=== PATIENT | female | born 1960 | race Caucasian/White ===

== ENCOUNTER → 2024-08-08 | Outpatient (CLI) | payer BC, SELFPAY ==
[2024-08-08 07:38] LABS: Misc Send Out* See Sep Rpt
--- NOTE | 2024-08-08 08:15 | XR_ITS ---
Examination: Screening digital mammography, unilateral right Computer aided detection 3-D breast Tomosynthesis, unilateral Date and time of exam: August 08, 2024 1941 hours INDICATIONS: Right breast itching one year, personal history left breast cancer left mastectomy December 2023 Indication: Screening Technique: Nonmagnified MLO, CC views of the right breast to been obtained, reconstructed from 3-D Tomosynthesis images. R2 computer aided detection program utilized for evaluation of suspicious masses and/or abnormal calcifications. 3-D Tomosynthesis images obtained. Findings: Scattered areas of fibroglandular density. Right nipple appears inverted 10 mm focal asymmetry outer right breast CC view 4.8 cm from the nipple Impression: BI-RADS Category 0: Incomplete: Need additional imaging evaluation 10 mm focal asymmetry outer right breast CC view, 4.8 cm from the nipple, recommend follow-up spot tomographic views upper outer quadrant right breast right breast sonography to complete the workup
[2024-08-08 09:01] LABS: Free T4 (Free Thyroxine) 1.06 ng/dL (0.89-1.76); Thyroid Stimulating Hormone 3.25 uIU/mL (0.55-4.78)
[2024-08-15 06:25] LABS: T3,Total* 83 ng/dL (76-181); TSI, Thyroid Stimulating Ig* <89 % baseline (<140); Thyroid Peroxidase Antibodies* 21 IU/mL (<9)
== END | disposition home or self-care (01) ==
LOC: COPL 07:21
PROVIDERS: Internal Medicine Hematology & Oncology; PCP Internal Medicine; Referring Provider Internal Medicine Endocrinology, Diabetes & Metabolism; Visit Provider Radiology Diagnostic Radiology
DX: N64.89 Other specified disorders of breast (principal); C50.912 Malignant neoplasm of unspecified site of left female breast; E06.3 Autoimmune thyroiditis; E04.9 Nontoxic goiter, unspecified
CPT/HCPCS: 36415; 77063; 77067; 83519; 84439; 84443; 84445; 84480; 86376

== ENCOUNTER 2024-08-15 10:11 | Outpatient (RCR) | payer BC, SELFPAY ==
--- NOTE | 2024-08-15 11:53 | CTCFLWUP_ITS ---
Patient: XIMENA JIANG : 1960 Page 2 of 3 FOLLOW UP NOTE DATE OF SERVICE: 08/15/2024 NAME: XIMENA JIANG ACCOUNT: [id number] : 1960 AGE: 63 INTERVAL HISTORY: Patient is complaining of left chest pain and pain radiate to the right side. Patient feels more alfonso n after working. Patient says that her chest pain comes and goes and have no aggravating or relieving factors. Someti mes she feels that it gets worse after she has worked out. ONCOLOGY HISTORY: DIAGNOSIS: Left breast cancer s/p mastectomy DATE OF DIAGNOSIS: 11/11/2023 STAGE/TNM: [id number] TREATMENT HISTORY: Care?Plan Start?Date Cycle Day Intent HISTORY OF PRESENT ILLNESS: Ximena Jiang is a 63-year-old ENG speaking female with [id number] history has the follo wing oncology history. 04/08/2022: CT scan of the chest without IV contrast was done as a screening test for history of smoki ng 04/15/2022: CT scan of the abdomen and pelvis with IV contrast 06/06/2022: Endocervix as well as endometrial biopsy 08/06/2023: Bilateral screening mammograms 09/10/2023: Left breast ultrasound? 11/11/2023: Ultrasound-guided percutaneous left breast 1:00 nodule biopsy? 12/14/2023: CT scan of the chest without IV contrast was done which was compared to a previous CT scan done on April 08, 2022 11/24/2023: CT scan of the abdomen and pelvis with IV contrast 01/01/2024: Left breast total mastectomy and sentinel lymph node biopsy? Prosigna (R) breast cancer gene signature assay test 01/26/2024: BRCA 1 and 2 test? 02/26/2024: Bone density test done 04/28/2024: PET/CT scan? OTHER MEDICAL HISTORY/CONDITIONS: Left breast cancer - dx 11/11/23 Rheumatoid arthritis Hypothyroid T and A - as child x 1 and tubal ligation 1993 ?Clone Other Med Hx? FAMILY HISTORY: Father:?Prostate?-?dx?80's Mother:?unknown?-?dx?40 ?Clone Family Hx? 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 Tobacco?Pack?per?Day:?1 Tobacco?Use?Years:?30 Tobacco?Use:?1/2?PPD?now ETOH?Use:?Socailly Drug?Note:?Denies Social?History?Note:?Lives?with? ?Clone Social Hx? TOE FORMER STITCHDOWNS HISTORY: Menarche?-?Age:?9 Menopause:?2006 :?7 Live?Births:?6 Age?1st?:?18 Gynecological?Note:?1? ?Clone TOE FORMER STITCHDOWNS Hx? MEDICATIONS: 1. anastrozole - 1 mg 1 tab 1 tab po q daily 2. BenadryL - 1 % 1 As needed 3. Citracal + D Slow Release - 600 mg-12.5 mcg (500 unit) 1 tab one tab po twice a day 4. diazePAM - 5 mg 1 tab As directed 5. levothyroxine - 88 mcg 1 tab Daily 6. ZyrTEC - 10 mg 1 tab Daily?Palabra Meds? Medications Last Reconciled by Vivian Dukes MA on 08/15/2024 ALLERGIES: meloxicam; codeine sulfate; codeine sulfate REVIEW OF SYSTEMS: A complete 14-point review of systems was performed and is negative except as noted in interval histo ry. PHYSICAL EXAMINATION: VITAL SIGNS: Temperature?98.4, B/P?148/91, Oxygen?Saturation?98% Weight?183?lbs PAIN: 4 - Moderate pain ECOG Performance Status: 1 - Symptomatic; ambulatory; restricted in strenuous activity GENERAL APPEARANCE: Appears well, in no apparent distress, appropriately interactive. HEENT: Normocephalic, no temporal wasting, normal conjunctiva, no scleral icterus, normal hearing, li ps without lesions, neck normal range of motion. CARDIOVASCULAR: Not assessed. PULMONARY: Normal respiratory effort, no respiratory distress or use of accessory muscles, speaking i n full sentences, no tachypnea. EXTREMITIES: No pedal edema or cyanosis. SKIN: Normal skin appearance. NEUROLOGIC: Alert and oriented x4. PSHYCHIATRIC: Appropriate affect, mood normal, behavior normal, intact thought and speech. Metastatic breast mastectomy site clean. Patient has lymphedema on the left arm. No other palpable masses in either breast or chest LABORATORY DATA: I have personally reviewed and interpreted each of the patient?s relevant lab tests, abnormal finding s are below: Date 04/04/24 ??WHITE?BLOOD?COUNT?(Thou/mm3) 10.0 ??RED?BLOOD?COUNT?(Miln/mm3) 5.17 ??HEMOGLOBIN?(gm/dl) 15.8 ??HEMATOCRIT?(%) 46.8?H ??PLATELET?COUNT?(Thou/mm3) 388 ??NEUTROPHILS?%,?AUTO?(%) 52 ??LYMPH?%,?AUTO?(%) 36 ??NEUTROPHILS,?AUTO?(Thou/mm3) 5.2 ASSESSMENT/PLAN: 1. Stage Ia (pT1c, N0, M0) low-grade, ER positive, NH positive, HER2/tammy negative multifocal invasive ductal carcinoma of the left breast. Prosigna (R) breast cancer gene signature assay score 57 (intermediate risk) Bone density test (02/26/2024) showed normal mineralization. BRCA 1 and 2 negative. S/p left total mastectomy with sentinel lymph node biopsy (01/01/2024). Patient have lymphedema assoc iated 2. Multiple small pulmonary nodules. [id number] smoking history. Stopped smoking about a month Nodules have been stable and neck scan will be in January 2025 3. History of endometrial thickening-follow with the primary care and fish smoker 4. History of rheumatoid arthritis follow with the primary care 5. History of hypothyroidism on levothyroxine follow-up with the PCP 6. History of gastric ulcers. Patient was seen by Dr. Villafuerte in the past 7. Left-sided chest pain likely from lymphedema. Patient will be sent to lymphedema clinic for refe rral. Also ordered lymphedema sleeve and breast prosthesis with the bras. I will also send patient for cardiac evaluation to make sure patient do not have a silent [place]. Echocardiogram and EKG ordered and referral placed to cardiology for reviewing and further action if needed. Patient advised to go to the emergency room so as to rule out cardiac chest pain but patient wants to follow-up with them o utpatient cop examiner. CBC CMP ORDERS: Echocardiogram CBC and CMP today or tomorrow EKG and cardiac referral RETURN TO CLINIC: 2 months to review all the above BILLING AND COMPLIANCE: I reviewed external records from providers outside my specialty as summarized above. I spent a total of 50 minutes on this patient?s care on the day of their visit excluding time spent related to any bi lled procedures. This time includes time spent with the patient as well as time spent documenting in the medical record, reviewing patients records and tests, obtaining history, placing orders, communi cating with other healthcare professionals, counseling the patient, family or caregiver, and/or care coordination for the diagnoses above. Electronically Signed by: Jose De Jesus Sanchez MD T: 11:51 AM CC: Courtney?Lee,MARINE PCP: Courtney Howard Referring: Courtney Howard This document was completed utilizing speech recognition software. Grammatical errors, random word in sertions, pronoun errors, and incomplete sentences are an occasional consequence of this system due t o software limitations, ambient noise, and hardware issues. Any formal questions or concerns about th e content, text or information contained within the body of this dictation should be directly address ed to the provider for clarification.
== END 2024-08-16 23:59 | disposition home or self-care (01) ==
LOC: SCTC 10:11
PROVIDERS: PCP Internal Medicine; Referring Provider Internal Medicine; Visit Provider Internal Medicine Hematology & Oncology
DX: C50.412 Malignant neoplasm of upper-outer quadrant of left female breast (principal); Z17.0 Estrogen receptor positive status [ER+]; Z17.21 Progesterone receptor positive status; Z17.32 Human epidermal growth factor receptor 2 negative status; Z90.12 Acquired absence of left breast and nipple; R91.8 Other nonspecific abnormal finding of lung field; Z87.891 Personal history of nicotine dependence; E03.9 Hypothyroidism, unspecified; I89.0 Lymphedema, not elsewhere classified
CPT/HCPCS: 99212; G0463

== ENCOUNTER → 2024-08-30 | Outpatient (CLI) | payer BC, SELFPAY ==
--- NOTE | 2024-08-30 15:30 | XR_ITS ---
Examination: Breast ultrasound, unilateral, right complete Date and time of exam: August 30, 2024 1547 hours INDICATIONS: Right breast itching one year with increased nipple inversion over the last year, personal history left breast cancer mastectomy Technique: Real-time bhatia scale ultrasonographic imaging performed right breast including all 4 quadrants as well as nipple retroareolar and axillary region. Findings: No cystic or solid mass IMPRESSION: BI-RADS Category 1: Negative study
[2024-08-30 16:51] LABS: Albumin, Serum 5.3 gm/dL (3.4-4.8); Anion Gap 12 (7-16); BUN/Creatinine Ratio 16 Ratio (12-20); Blood Urea Nitrogen 14 mg/dL (9-23); Calcium 10.3 mg/dL (8.3-10.6); Calcium (Corrected) 10.3 mg/dL (8.5-10.1); Carbon Dioxide 23.8 mMol/L (20.0-31.0); Chloride 103 mMol/L (98-107); Creatinine (Component) 0.9 mg/dL (0.6-1.3); Glucose 99 mg/dL (74-106); Osmolality,Calculated 278 (275-295); Phosphorous 4.5 mg/dL (2.4-5.1); Potassium 4.1 mMol/L (3.4-5.1); Sodium 139 mMol/L (136-145); eGFR > 60 See Note
== END | disposition home or self-care (01) ==
LOC: CDIM 15:35 → COPL 16:00
PROVIDERS: PCP Internal Medicine; Referring Provider Internal Medicine Hematology & Oncology; Visit Provider Internal Medicine Hematology & Oncology
DX: C50.912 Malignant neoplasm of unspecified site of left female breast (principal); G89.28 Other chronic postprocedural pain; Z79.899 Other long term (current) drug therapy
CPT/HCPCS: 36415; 76641; 80069

== ENCOUNTER → 2024-09-07 | Outpatient (CLI) | payer BC, SELFPAY ==
--- NOTE | 2024-09-07 12:00 | XR_ITS ---
Examination: MRI chest , with intravenous contrast. Exam date and time: September 07, 2024 1242 hours INDICATIONS: Chest pain below the breast area and in the left axilla 4 months, personal history left breast cancer mastectomy December 2023 Technique: Multiple axial, sagittal and coronal images of the chest have been obtained with the Siemens high-resolution 1.5 Katie MRI scanner. Axial, sagittal and coronal images are obtained post intravenous injection 15 cc gadolinium. Findings: Left mastectomy No enhancing breast or chest wall mass No pathologic axillary lymphadenopathy depicted No paratracheal tracheobronchial or bronchopulmonary adenopathy Pulmonary mass lesions are not identified No enhancing liver or splenic lesions liver incompletely visualized IMPRESSION: Status post left mastectomy No enhancing breast or chest wall mass No pathologic lymphadenopathy Given the patient's presentation, consider MRI bilateral breasts follow-up pre and postcontrast
== END | disposition home or self-care (01) ==
LOC: SMRI 09-08 08:22
PROVIDERS: PCP Internal Medicine; Referring Provider Internal Medicine; Visit Provider Internal Medicine
DX: G89.28 Other chronic postprocedural pain (principal)
CPT/HCPCS: 71551; A9579

== ENCOUNTER → 2024-09-08 | Outpatient (CLI) | payer BC, SELFPAY ==
[2024-09-08 08:41] LABS: Basophils # (Auto) 0.1 Thou/mm3 (0.0-0.2); Basophils % (Auto) 1 % (0-2.5); Eosinophils # (Auto) 0.2 Thou/mm3 (0.0-0.5); Eosinophils % (Auto) 3 % (0-10); Hematocrit 46.6 % (36.0-46.0); Hemoglobin 15.8 g/dL (12.0-16.0); Immature Granulocytes % (Auto) 0 % (0-0); Immature Granulocytes Auto 0.02 Thou/mm3 (0.00-0.00); Lymphocytes # (Auto) 3.2 Thou/mm3 (1.0-4.8); Lymphocytes % (Auto) 40 % (10-50); Mean Corpuscular HGB Conc 33.9 g/dl (31.0-37.0); Mean Corpuscular Hemoglobin 30.3 pg (25.0-35.0); Mean Corpuscular Volume 89 fL (80-100); Monocytes # (Auto) 0.6 Thou/mm3 (0.0-0.8); Monocytes % (Auto) 8 % (0-12); Neutrophils # (Auto) 3.9 Thou/mm3 (1.8-7.7); Neutrophils % (Auto) 49 % (37-80); Nucleated Red Blood Cell % 0 /100 WBC (0); Platelet Count 355 Thou/mm3 (140-440); RDW Standard Deviation 43.3 fL (36.4-46.3); Red Blood Count 5.21 Miln/mm3 (4.00-5.20)
[2024-09-08 09:16] LABS: Alanine Aminotransferase 29 U/L (10-49); Albumin, Serum 5.1 gm/dL (3.4-4.8); Albumin/Globulin Ratio 1.9 (1.2-2.2); Alkaline Phosphatase 96 U/L (46-116); Anion Gap 8 (7-16); Aspartate Amino Transferase 15 U/L (0-34); BUN/Creatinine Ratio 23 Ratio (12-20); Bilirubin,Total 0.2 mg/dL (0.3-1.2); Blood Urea Nitrogen 18 mg/dL (9-23); Calcium 10.2 mg/dL (8.3-10.6); Calcium (Corrected) 10.2 mg/dL (8.5-10.1); Carbon Dioxide 27.5 mMol/L (20.0-31.0); Chloride 104 mMol/L (98-107); Creatinine (Component) 0.8 mg/dL (0.6-1.3); Free T4 (Free Thyroxine) 1.38 ng/dL (0.89-1.76); Globulin 2.7 gm/dL (2.3-3.5); Glucose 121 mg/dL (74-106); Osmolality,Calculated 280 (275-295); Potassium 4.7 mMol/L (3.4-5.1); Sodium 139 mMol/L (136-145); Thyroid Stimulating Hormone 3.27 uIU/mL (0.55-4.78); Total Protein 7.8 gm/dL (5.7-8.2); eGFR > 60 See Note
== END | disposition home or self-care (01) ==
LOC: SCTO 07:10
PROVIDERS: PCP Internal Medicine; Referring Provider Internal Medicine Hematology & Oncology; Visit Provider Internal Medicine Hematology & Oncology
DX: C50.912 Malignant neoplasm of unspecified site of left female breast (principal)
CPT/HCPCS: 36415; 80053; 84439; 84443; 85025

== ENCOUNTER → 2024-09-13 | Outpatient (CLI) | payer BC, SELFPAY ==
--- NOTE | 2024-09-13 07:52 | EKG_ITS ---
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
== END | disposition home or self-care (01) ==
PROVIDERS: PCP Internal Medicine; Referring Provider Internal Medicine Hematology & Oncology; Visit Provider Internal Medicine Hematology & Oncology
DX: C50.912 Malignant neoplasm of unspecified site of left female breast (principal)
CPT/HCPCS: 93005

== ENCOUNTER → 2024-10-11 | Outpatient (CLI) | payer BC, SELFPAY ==
[2024-10-11 08:43] LABS: Anion Gap 9 (7-16); BUN/Creatinine Ratio 20 Ratio (12-20); Blood Urea Nitrogen 16 mg/dL (9-23); Carbon Dioxide 26.9 mMol/L (20.0-31.0); Chloride 104 mMol/L (98-107); Creatinine (Component) 0.8 mg/dL (0.6-1.3); Glucose 126 mg/dL (74-106); Osmolality,Calculated 282 (275-295); Potassium 4.6 mMol/L (3.4-5.1); Sodium 140 mMol/L (136-145); eGFR > 60 See Note
== END | disposition home or self-care (01) ==
LOC: COPL 07:29
PROVIDERS: PCP Internal Medicine; Referring Provider Internal Medicine; Visit Provider Internal Medicine
DX: Z79.899 Other long term (current) drug therapy (principal)
CPT/HCPCS: 36415; 80048

== ENCOUNTER → 2024-11-09 | Outpatient (CLI) | payer BC, SELFPAY ==
--- NOTE | 2024-11-09 | XR_ITS ---
Examination: MRI bilateral breasts without intravenous contrast MRI bilateral breasts with intravenous contrast Exam date and time: November 09, 2024 0740 hours Comparison right breast sonography August 30, 2024, mammography, right August 08, 2024 INDICATIONS: Diagnosis right breast pain, status post left mastectomy for left breast carcinoma December 2023, mammogram August 08, 2024 10 mm focal asymmetry outer right breast CC view, 4.8 cm from the nipple TECHNIQUE AND FINDINGS:: Bilateral breast MRI images pre and post 16 cc gadolinium Left mastectomy with scar formation lateral left chest Scattered areas of fibroglandular density right breast with minimal background breast enhancement Left axillary lymph nodes, the largest 8 mm No dominant breast mass No chest wall mass Postcontrast images demonstrate no focal area of rapid wash-in and washout IMPRESSION: BI-RADS Category 2: Benign findings Given the mammogram report August 08, 2024 indicating 10 mm focal asymmetry outer right breast CC view, 4.8 cm from the nipple, recommend repeat right diagnostic mammogram January 2025
== END | disposition home or self-care (01) ==
LOC: SMRI 06:56
PROVIDERS: PCP Internal Medicine; Referring Provider Internal Medicine; Visit Provider Internal Medicine
DX: N64.89 Other specified disorders of breast (principal)
CPT/HCPCS: 77049; A4699; A9579; C8908

== ENCOUNTER → 2024-11-15 | Outpatient (CLI) | payer BC, SELFPAY ==
[2024-11-15 08:38] LABS: Basophils # (Auto) 0.1 Thou/mm3 (0.0-0.2); Basophils % (Auto) 1 % (0-2.5); Eosinophils # (Auto) 0.3 Thou/mm3 (0.0-0.5); Eosinophils % (Auto) 4 % (0-10); Hematocrit 45.5 % (36.0-46.0); Hemoglobin 15.4 g/dL (12.0-16.0); Immature Granulocytes % (Auto) 0 % (0-0); Immature Granulocytes Auto 0.02 Thou/mm3 (0.00-0.00); Lymphocytes # (Auto) 3.1 Thou/mm3 (1.0-4.8); Lymphocytes % (Auto) 39 % (10-50); Mean Corpuscular HGB Conc 33.8 g/dl (31.0-37.0); Mean Corpuscular Hemoglobin 30.4 pg (25.0-35.0); Mean Corpuscular Volume 90 fL (80-100); Monocytes # (Auto) 0.6 Thou/mm3 (0.0-0.8); Monocytes % (Auto) 8 % (0-12); Neutrophils # (Auto) 3.8 Thou/mm3 (1.8-7.7); Neutrophils % (Auto) 48 % (37-80); Nucleated Red Blood Cell % 0 /100 WBC (0); Platelet Count 376 Thou/mm3 (140-440); RDW Standard Deviation 42.8 fL (36.4-46.3); Red Blood Count 5.07 Miln/mm3 (4.00-5.20); White Blood Count 7.9 Thou/mm3 (3.6-11.0)
[2024-11-15 09:13] LABS: Alanine Aminotransferase 40 U/L (10-49); Albumin, Serum 4.9 gm/dL (3.4-4.8); Albumin/Globulin Ratio 1.9 (1.2-2.2); Alkaline Phosphatase 93 U/L (46-116); Anion Gap 7 (7-16); Aspartate Amino Transferase 31 U/L (0-34); BUN/Creatinine Ratio 16 Ratio (12-20); Bilirubin,Total 0.3 mg/dL (0.3-1.2); Blood Urea Nitrogen 14 mg/dL (9-23); Calcium 10.1 mg/dL (8.3-10.6); Calcium (Corrected) 10.1 mg/dL (8.5-10.1); Chloride 107 mMol/L (98-107); Creatinine (Component) 0.9 mg/dL (0.6-1.3); Globulin 2.6 gm/dL (2.3-3.5); Glucose 120 mg/dL (74-106); Osmolality,Calculated 280 (275-295); Potassium 4.6 mMol/L (3.4-5.1); Sodium 140 mMol/L (136-145); Total Protein 7.5 gm/dL (5.7-8.2); eGFR > 60 See Note
== END | disposition home or self-care (01) ==
PROVIDERS: PCP Internal Medicine; Referring Provider Internal Medicine Hematology & Oncology; Visit Provider Internal Medicine Hematology & Oncology
DX: C50.912 Malignant neoplasm of unspecified site of left female breast (principal)
CPT/HCPCS: 36415; 80053; 85025

== ENCOUNTER 2024-11-23 14:05 | Outpatient (RCR) | payer BC, SELFPAY ==
--- NOTE | 2024-11-24 00:33 | CTCFLWUP_ITS ---
Patient: XIMENA JIANG : 1960 Page 10 of 11 FOLLOW UP NOTE DATE OF SERVICE: 11/23/2024 NAME: XIMENA JIANG ACCOUNT: [id number] : 1960 AGE: 64 INTERVAL HISTORY: Deidre, a patient with a history of breast cancer, Heath's thyroiditis, and hypertension, presents for follow-up of left-sided face pain and routine cancer surveillance. The patient reports improvement in her left-sided face pain, which she initially experienced in July. The pain, which previously worsened after working out, has now reduced to a dull ache without severe episodes. The patient has been attending lymphedema clinic and reports good progress, performing exercises at home and using a prosthesis. She mentions waking up around 3 AM every morning, possibly due to hot flashes. The patient also reports difficulty losing weight despite eating little, which she attributes to her hypothyroidism. Deidre has a 30 pack-year smoking history and undergoes annual CT scans for lung nodule surveillance. She reports stable bilateral nodules with no new pulmonary nodules on her most recent scan. 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 Regarding her breast cancer follow-up, Deidre's last mammogram in July showed a 10 mm focal asymmetry in the right breast, with a negative ultrasound. A subsequent breast MRI suggested a diagnostic mammogram in 6 months. The patient continues to take anastrozole daily as prescribed. Deidre reports adopting a new diet two weeks ago, focusing on fish, gluten- free options, low-carb choices, and plenty of vegetables and fruits. She is adhering to her medication regimen, including calcium and vitamin D supplements, and obtaining vitamin D over the counter. 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 - Hyperthyroidism (initially, prior to hypothyroidism) - Hypertension (chronic) - Left atrial enlargement - Right bundle branch block - Mild right ventricular systolic dysfunction - Lymphedema Surgical History - Thyroid procedure (likely removal of thyroid tissue) Medications and Supplements - Anastrozole - Taken daily until 2030 - Can cause osteoporosis - Calcium - Taken daily - Vitamin D - Taken daily - Obtained over the counter - Centrum Silver multivitamin for women - Taken daily - Contains B12 Social History - Substance Use: 30 pack-year smoking history - Diet: Recently started gluten-free, low-carb diet with lots of vegetables, fruits, and fish (2 weeks ago) - Exercise: Performs exercises at home for lymphedema management Review of Systems General: Positive for difficulty losing weight. HEENT: Positive for left-sided face pain (improved to dull ache). Cardiovascular: Positive for mild right ventricular strain. Respiratory: Positive for throat wheezing. Neurological: Positive for waking up at 3 AM every morning. Endocrine: Positive for hot flashes.ONCOLOGY HISTORY:?[facility] Hx? DIAGNOSIS: Left breast cancer s/p mastectomy DATE OF DIAGNOSIS: 11/11/2023 STAGE/TNM: [id number] TREATMENT HISTORY: Care?Plan Start?Date Cycle Day Intent HISTORY OF PRESENT ILLNESS: Ximena Jiang is a 64-year-old ENG speaking female with [id number] history has the following oncology history. 04/08/2022: CT scan of the chest without IV contrast was done as a screening test for history of smoking 04/15/2022: CT scan of the abdomen and pelvis with IV contrast 06/06/2022: Endocervix as well as endometrial biopsy 08/06/2023: Bilateral screening mammograms 09/10/2023: Left breast ultrasound? 11/11/2023: Ultrasound-guided percutaneous left breast 1:00 nodule biopsy? 12/14/2023: CT scan of the chest without IV contrast was done which was compared to a previous CT scan done on April 08, 2022 11/24/2023: CT scan of the abdomen and pelvis with IV contrast 01/01/2024: Left breast total mastectomy and sentinel lymph node biopsy? Prosigna (R) breast cancer gene signature assay test 01/26/2024: BRCA 1 and 2 test? 02/26/2024: Bone density test done 04/28/2024: PET/CT scan? OTHER MEDICAL HISTORY/CONDITIONS: Left breast cancer - dx 11/11/23 Rheumatoid arthritis Hypothyroid T and A - as child x 1 and tubal ligation 1993 ?Clone Other Med Hx? FAMILY HISTORY: Father:?Prostate?-?dx?80's Mother:?unknown?-?dx?40 ?Clone Family Hx? 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 Tobacco?Pack?per?Day:?1 Tobacco?Use?Years:?30 Tobacco?Use:?1/2?PPD?now ETOH?Use:?Socailly Drug?Note:?Denies Social?History?Note:?Lives?with? ?Clone Social Hx? CARD CHECKER HISTORY: Menarche?-?Age:?9 Menopause:?2006 :?7 Live?Births:?6 Age?1st?:?18 Gynecological?Note:?1? ?Clone CARD CHECKER Hx? MEDICATIONS: 1. anastrozole - 1 mg 1 tab 1 tab po q daily 2. Arimidex - 1 mg 1 tab Daily 3. BenadryL - 1 % 1 As needed 4. Citracal + D Slow Release - 600 mg-12.5 mcg (500 unit) 1 tab one tab po twice a day 5. diazePAM - 5 mg 1 tab As directed 6. levothyroxine - 88 mcg 1 tab Daily 7. ZyrTEC - 10 mg 1 tab Daily?Palabra Meds? Medications Last Reconciled by Vivian Dukes MA on 11/23/2024 ALLERGIES: meloxicam; codeine sulfate; codeine sulfate REVIEW OF SYSTEMS: A complete 14-point review of systems was performed and is negative except as noted in interval history. PHYSICAL EXAMINATION:?[facility] PE? VITAL SIGNS: Temperature?98.7, B/P?129/84, Oxygen?Saturation?97% Weight?180?lbs PAIN: 0 - No pain ECOG Performance Status: 1 - Symptomatic; ambulatory; restricted in strenuous activity GENERAL APPEARANCE: Appears well, in no apparent distress, appropriately interactive. HEENT: Normocephalic, no temporal wasting, normal conjunctiva, no scleral icterus, normal hearing, lips without lesions, neck normal range of motion. CARDIOVASCULAR: Not assessed. PULMONARY: Normal respiratory effort, no respiratory distress or use of accessory muscles, speaking in full sentences, no tachypnea. EXTREMITIES: No pedal edema or cyanosis. SKIN: Normal skin appearance. NEUROLOGIC: Alert and oriented x4. PSHYCHIATRIC: Appropriate affect, mood normal, behavior normal, intact thought and speech. Metastatic breast mastectomy site clean. Patient has lymphedema on the left arm. No other palpable masses in either breast or chest Laboratory, Imaging, and Diagnostic Test Results - Echocardiogram: - Ejection fraction: 60-65% (normal) - Left atrial enlargement - Right bundle branch block - Mild strain on the heart - Reduced right ventricular systolic function - Chest CT scan: - Stable bilateral nodules - No new pulmonary nodules - Mammogram (July): - 10 mm focal asymmetry in the right breast - Breast ultrasound: - Negative - Breast MRI: - Suggested diagnostic mammogram in 6 months - Bone density scan (February 2024): - Normal LABORATORY DATA: I have personally reviewed and interpreted each of the patient?s relevant lab tests, abnormal findings are below: Date 09/08/24 10/11/24 11/15/24 ??WHITE?BLOOD?COUNT?(Thou/mm3) ? ? 7.9 ??RED?BLOOD?COUNT?(Miln/mm3) ? ? 5.07 ??HEMOGLOBIN?(gm/dl) ? ? 15.4 ??HEMATOCRIT?(%) ? ? 45.5 ??PLATELET?COUNT?(Thou/mm3) ? ? 376 ??NEUTROPHILS?%,?AUTO?(%) ? ? 48 ??LYMPH?%,?AUTO?(%) ? ? 39 ??NEUTROPHILS,?AUTO?(Thou/mm3) ? ? 3.8 ??GLUCOSE,RANDOM?(mg/dL) 121?H 126?H 120?H ??BLOOD?UREA?NITROGEN?(mg/dL) 18 16 14 ??CREATININE?(mg/dL) 0.80 0.80 0.90 ??SODIUM?(mmol/L) 139 140 140 ??POTASSIUM?(mmol/L) 4.7 4.6 4.6 ??CHLORIDE?(mmol/L) 104 104 107 ??CrCl?(CandG)?(ml/min) 73.64 73.64 65.46 ??AST/SGOT?(Unit/L) 15 ? 31 ??ALT/SGPT?(Unit/L) 29 ? 40 ??ALKALINE?PHOSPHATASE?(Unit/L) 96 ? 93 ??BILIRUBIN,?TOTAL?(mg/dL) 0.2?L ? 0.3 ??PROTEIN?TOTAL?(gm/dl) 7.8 ? 7.5 ??ALBUMIN,?SERUM?(gm/dl) 5.1?H ? 4.9?H ??GLOBULIN?(gm/dl) 2.7 ? 2.6 ??ALBUMIN/GLOBULIN?RATIO 1.9 ? 1.9 ??CALCIUM,?SERUM?(mg/dL) 10.2 10.0 10.1 ??CALCIUM?SERUM?(CORRECTED)?(mg/dL) 10.2?H ? 10.1 ASSESSMENT/PLAN:?GuilleEdgardomaira Boogie Assessment/Plan? 1. Stage Ia (pT1c, N0, M0) low-grade, ER positive, IN positive, HER2/tammy negative multifocal invasive ductal carcinoma of the left breast. Prosigna (R) breast cancer gene signature assay score 57 (intermediate risk) Bone density test (02/26/2024) showed normal mineralization. BRCA 1 and 2 negative. S/p left total mastectomy with sentinel lymph node biopsy (01/01/2024). Patient have lymphedema associated Deidre, a female patient with a history of breast cancer, Heath's thyroiditis, and hypertension, presents for follow-up of left-sided face pain and management of multiple chronic conditions. Left-sided face pain Assessment: Patient reported left-sided face pain in July, which worsened after working out. Currently, the pain has improved to a dull ache without severe episodes. The etiology of the pain is not clearly established in the transcript. Plan: - Continue monitoring symptoms - Advised to rest more and avoid overexertion Breast cancer (history) Assessment: Patient has a history of breast cancer and is currently on anastrozole therapy. Recent mammogram in July showed a 10 mm focal asymmetry in the right breast, with a negative ultrasound. Breast MRI suggested a follow- up diagnostic mammogram in 6 months. Plan: - Schedule right diagnostic mammogram in 6 months (January) - Continue anastrozole daily until 2030 - Continue calcium and vitamin D supplementation - Recommend Centrum Silver multivitamin for women daily - Monitor for osteoporosis risk due to anastrozole therapy - Next bone density scan due in February 2026 Cardiovascular health Assessment: Recent echocardiogram showed normal heart function with an ejection fraction of 60-65%. Left atrial enlargement and right bundle branch block were noted, likely due to chronic hypertension. Mild strain on the heart and reduced right ventricular systolic function were also observed. Plan: - Continue management of hypertension (specific treatment not mentioned) - Advised to keep room temperature cool at night to manage hot flashes Pulmonary nodules Assessment: Patient has a 30 pack-year smoking history and undergoes annual CT scans. Recent scans show stable bilateral nodules with no new pulmonary nodules identified. Plan: - Schedule another chest CT scan - Follow up in 6 months - Strongly advise smoking cessation Heath's thyroiditis Assessment: Patient has a history of Heath's thyroiditis, which is causing hypothyroidism. She reports difficulty losing weight despite reduced caloric intake, which is consistent with hypothyroidism. 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 Plan: - Continue current thyroid management (specific treatment not mentioned) - Encourage weight maintenance and periodic weight checks - Recommend plant-based, gluten-free, low-carb diet with plenty of vegetables and fruits Lymphedema Assessment: Patient is attending lymphedema clinic and reports positive outcomes. She is performing exercises at home and has obtained a prosthesis. Plan: - Continue with lymphedema clinic - Maintain home exercise regimenORDERS: Order # Description [id number] 3D Mammogram Diagnostic + Right RETURN TO CLINIC: 6 months Instructions Dear Deidre, Thank you for visiting today. Here is a summary of the miller instructions: Medications: - Continue taking anastrozole daily until 2030 - Take calcium and vitamin D supplements daily - Take Centrum Silver multivitamin for women daily Lifestyle Changes: - Try to rest more and avoid overexertion - Keep bedroom temperature lower at night - Take a shower at night to help with sleep - Focus on not gaining more weight - Follow a plant-based diet with lots of vegetables and fruits - Continue eating fish, gluten-free, and low-carb foods Medical Care: - Continue with lymphedema clinic exercises at home - Get a right diagnostic mammogram in 6 months (January) - Get a chest CT scan - Ensure all screenings are up to date, including colonoscopy Follow-up: - Follow-up appointment in 6 months Please reach out if you have any questions or concerns. Best Regards, jose de jesus boogie, Oncology BILLING AND COMPLIANCE: I reviewed external records from providers outside my specialty as summarized above. I spent a total of 50 minutes on this patient?s care on the day of their visit excluding time spent related to any billed procedures. This time includes time spent with the patient as well as time spent documenting in the medical record, reviewing patients records and tests, obtaining history, placing orders, communicating with other healthcare professionals, counseling the patient, family or caregiver, and/or care coordination for the diagnoses above. Electronically Signed by: Jose De Jesus Boogie MD T: 12:31 AM CC: Courtney?Lee,? PCP: Courtney Howard Referring: Courtney Howard This document was completed utilizing speech recognition software. Grammatical errors, random word insertions, pronoun errors, and incomplete sentences are an occasional consequence of this system due to software limitations, ambient noise, and hardware issues. Any formal questions or concerns about the content, text or information contained within the body of this dictation should be directly addressed to the provider for clarification.
== END 2024-12-14 23:59 | disposition home or self-care (01) ==
LOC: SCTC 14:05
PROVIDERS: PCP Internal Medicine; Referring Provider Internal Medicine; Visit Provider Internal Medicine Hematology & Oncology
DX: C50.412 Malignant neoplasm of upper-outer quadrant of left female breast (principal); Z17.0 Estrogen receptor positive status [ER+]; Z17.21 Progesterone receptor positive status; Z17.32 Human epidermal growth factor receptor 2 negative status; Z90.12 Acquired absence of left breast and nipple; E06.3 Autoimmune thyroiditis; I10 Essential (primary) hypertension; R51.9 Headache, unspecified; N64.89 Other specified disorders of breast; R91.8 Other nonspecific abnormal finding of lung field; I89.0 Lymphedema, not elsewhere classified
CPT/HCPCS: 99212; G0463

== ENCOUNTER → 2024-11-24 | Outpatient (CLI) | payer BC, SELFPAY ==
[2024-11-24 08:39] LABS: Glucose Estimated Average 134 mg/dL (80-131); Hemoglobin A1C 6.3 % Hgb (4.8-6.0)
[2024-11-24 08:41] LABS: Basophils # (Auto) 0.1 Thou/mm3 (0.0-0.2); Basophils % (Auto) 1 % (0-2.5); Eosinophils # (Auto) 0.3 Thou/mm3 (0.0-0.5); Eosinophils % (Auto) 5 % (0-10); Hematocrit 43.5 % (36.0-46.0); Hemoglobin 14.9 g/dL (12.0-16.0); Immature Granulocytes % (Auto) 0 % (0-0); Immature Granulocytes Auto 0.01 Thou/mm3 (0.00-0.00); Lymphocytes # (Auto) 2.5 Thou/mm3 (1.0-4.8); Lymphocytes % (Auto) 35 % (10-50); Mean Corpuscular HGB Conc 34.3 g/dl (31.0-37.0); Mean Corpuscular Hemoglobin 30.5 pg (25.0-35.0); Mean Corpuscular Volume 89 fL (80-100); Monocytes # (Auto) 0.6 Thou/mm3 (0.0-0.8); Monocytes % (Auto) 9 % (0-12); Neutrophils # (Auto) 3.4 Thou/mm3 (1.8-7.7); Neutrophils % (Auto) 50 % (37-80); Nucleated Red Blood Cell % 0 /100 WBC (0); Platelet Count 343 Thou/mm3 (140-440); RDW Standard Deviation 43.6 fL (36.4-46.3); Red Blood Count 4.88 Miln/mm3 (4.00-5.20); White Blood Count 6.9 Thou/mm3 (3.6-11.0)
[2024-11-24 08:53] LABS: Alanine Aminotransferase 75 U/L (10-49); Albumin, Serum 4.8 gm/dL (3.4-4.8); Albumin/Globulin Ratio 1.8 (1.2-2.2); Alkaline Phosphatase 89 U/L (46-116); Anion Gap 8 (7-16); Aspartate Amino Transferase 47 U/L (0-34); BUN/Creatinine Ratio 19 Ratio (12-20); Bilirubin,Total 0.3 mg/dL (0.3-1.2); Blood Urea Nitrogen 15 mg/dL (9-23); Calcium 9.7 mg/dL (8.3-10.6); Calcium (Corrected) 9.7 mg/dL (8.5-10.1); Carbon Dioxide 23.7 mMol/L (20.0-31.0); Cardiac Risk Estimate 3.3 RATIO (3.7-5.6); Chloride 109 mMol/L (98-107); Cholesterol 187 mg/dL (132-200); Creatinine (Component) 0.8 mg/dL (0.6-1.3); Globulin 2.7 gm/dL (2.3-3.5); Glucose 127 mg/dL (74-106); HDL Cholesterol 57 mg/dL (40-60); LDL Cholesterol,Calculated 103 mg/dL (0-130); Osmolality,Calculated 284 (275-295); Potassium 4.3 mMol/L (3.4-5.1); Sodium 141 mMol/L (136-145); Thyroid Stimulating Hormone 2.17 uIU/mL (0.55-4.78); Total Protein 7.5 gm/dL (5.7-8.2); Triglycerides 133 mg/dL (30-150); eGFR > 60 See Note
[2024-11-24 09:02] LABS: Syphilis Nonreactive (Nonreactive)
[2024-11-24 09:22] LABS: Hepatitis A Antibody IgM Non Reactive (Non React); Hepatitis B Core Antibody IgM Non Reactive (Non React); Hepatitis B Surface Antigen Non Reactive (Non React); Hepatitis C Antibody Non Reactive (Non React); Vitamin D 25 Hydroxy Total 28.9 ng/mL (7.3-40.2)
[2024-11-28 06:46] LABS: HIV Ag/Ab, 4th Gen NON-REACTIVE
== END | disposition home or self-care (01) ==
LOC: COPL 07:06
PROVIDERS: PCP Internal Medicine; Referring Provider Internal Medicine; Visit Provider Internal Medicine
DX: Z11.3 Encounter for screening for infections with a predominantly sexual mode of transmission (principal); E03.9 Hypothyroidism, unspecified; E06.3 Autoimmune thyroiditis; E56.9 Vitamin deficiency, unspecified; E78.1 Pure hyperglyceridemia; F41.9 Anxiety disorder, unspecified; Z79.899 Other long term (current) drug therapy
CPT/HCPCS: 36415; 80053; 80061; 80074; 82306; 83036; 84443; 85025; 86780; 87389

== ENCOUNTER → 2024-12-28 | Outpatient (CLI) | payer BC, SELFPAY ==
[2024-12-28 07:16] LABS: Misc Send Out* See Sep Rpt
[2024-12-28 08:23] LABS: Basophils # (Auto) 0.1 Thou/mm3 (0.0-0.2); Basophils % (Auto) 1 % (0-2.5); Eosinophils # (Auto) 0.4 Thou/mm3 (0.0-0.5); Eosinophils % (Auto) 5 % (0-10); Hematocrit 45.1 % (36.0-46.0); Hemoglobin 15.6 g/dL (12.0-16.0); Immature Granulocytes % (Auto) 0 % (0-0); Immature Granulocytes Auto 0.01 Thou/mm3 (0.00-0.00); Lymphocytes # (Auto) 3.1 Thou/mm3 (1.0-4.8); Lymphocytes % (Auto) 39 % (10-50); Mean Corpuscular HGB Conc 34.6 g/dl (31.0-37.0); Mean Corpuscular Hemoglobin 31.5 pg (25.0-35.0); Mean Corpuscular Volume 91 fL (80-100); Monocytes # (Auto) 0.7 Thou/mm3 (0.0-0.8); Monocytes % (Auto) 9 % (0-12); Neutrophils # (Auto) 3.6 Thou/mm3 (1.8-7.7); Neutrophils % (Auto) 46 % (37-80); Nucleated Red Blood Cell % 0 /100 WBC (0); Platelet Count 352 Thou/mm3 (140-440); RDW Standard Deviation 43.1 fL (36.4-46.3); Red Blood Count 4.95 Miln/mm3 (4.00-5.20); White Blood Count 7.8 Thou/mm3 (3.6-11.0)
[2024-12-28 08:31] LABS: Alanine Aminotransferase 32 U/L (10-49); Albumin, Serum 4.7 gm/dL (3.4-4.8); Albumin/Globulin Ratio 1.7 (1.2-2.2); Alkaline Phosphatase 97 U/L (46-116); Anion Gap 8 (7-16); Aspartate Amino Transferase 18 U/L (0-34); BUN/Creatinine Ratio 18 Ratio (12-20); Bilirubin,Total 0.3 mg/dL (0.3-1.2); Blood Urea Nitrogen 14 mg/dL (9-23); Calcium 9.3 mg/dL (8.3-10.6); Calcium (Corrected) 9.3 mg/dL (8.5-10.1); Carbon Dioxide 25.6 mMol/L (20.0-31.0); Chloride 107 mMol/L (98-107); Creatinine (Component) 0.8 mg/dL (0.6-1.3); Globulin 2.8 gm/dL (2.3-3.5); Glucose 134 mg/dL (74-106); Osmolality,Calculated 283 (275-295); Potassium 4.6 mMol/L (3.4-5.1); Rubella, IgG Antibody Reactive (Immune); Sodium 141 mMol/L (136-145); Total Protein 7.5 gm/dL (5.7-8.2); eGFR > 60 See Note
[2025-01-02 07:36] LABS: Measles Antibody (IGG), Immun* >300.00 AU/mL; Mumps Virus Ab (IgG) Immune* >300.00 AU/mL
== END | disposition home or self-care (01) ==
LOC: SCTO 06:52
PROVIDERS: Referring Provider Internal Medicine; Visit Provider Internal Medicine Hematology & Oncology
DX: C50.912 Malignant neoplasm of unspecified site of left female breast (principal)
CPT/HCPCS: 36415; 80053; 85025; 86735; 86762; 86765

== ENCOUNTER → 2024-12-30 | Outpatient (CLI) | payer BC, SELFPAY ==
--- NOTE | 2024-12-30 14:00 | ECHO_ITS ---
Transthoracic Echo Report Ht (in): 63 Wt (lb): 180 Exam Location: Echo Lab Status: Preadmit Dry Plasterer Helper: CHAYO Williamson^^^^ Indications: Procedure Performed: BP: / HR: 98 Technical Quality: Fair MEASUREMENTS (Male / Female) Normal Values 2D ECHO LV Diastolic Diameter PLAX 3.8 cm 4.2 - 5.9 / 3.9 - 5.3 cm LV Systolic Diameter PLAX 2.5 cm IVS Diastolic Thickness 1.0 cm 0.6 - 1.0 / 0.6 - 0.9 cm LVPW Diastolic Thickness 0.8 cm 0.6 - 1.0 / 0.6 - 0.9 cm LV Relative Wall Thickness 0.5 LVOT Diameter 1.8 cm Aortic Root Diameter 2.8 cm LA Systolic Diameter LX 2.3 cm 3.0 - 4.0 / 2.7 - 3.8 cm LA Volume Index 13.5 cm?/m? 16 - 28 cm?/m? DOPPLER AV Peak Velocity 115.0 cm/s AV Peak Gradient 5.3 mmHg AV Mean Gradient 3.0 mmHg AV Velocity Time Integral 18.5 cm LVOT Peak Velocity 77.6 cm/s LVOT Peak Gradient 2.4 mmHg LVOT Velocity Time Integral 17.5 cm LVOT Cardiac Index 2254.0 cm?/min?m? AV Area Cont Eq vti 2.4 cm? AV Area Cont Eq pk 1.7 cm? MV Area PHT 2.8 cm? Mitral E Point Velocity 64.6 cm/s Mitral A Point Velocity 83.2 cm/s Mitral E to A Ratio 0.8 LV E' Lateral Velocity 9.6 cm/s Mitral E to LV E' Lateral Ratio 6.7 LV E' Septal Velocity 8.3 cm/s Mitral E to LV E' Septal Ratio 7.8 PV Peak Velocity 118.0 cm/s PV Peak Gradient 5.6 mmHg RVOT Peak Velocity 80.5 cm/s FINDINGS Left Ventricle Normal left ventricular size, wall thickness, systolic function with no obvious regional wall motion abnormalities. There is grade I diastolic dysfunction of the left ventricle (impaired relaxation pattern). The left ventricular ejection fraction is normal, estimated at 55-60%. Right Ventricle The right ventricle is normal in size and systolic function. The estimated right ventricular systolic pressure, 25 mmHg. Left Atrium The left atrium is normal by two-dimensional, color flow and Doppler imaging with no structural abnormalities, no thrombus formation present. Right Atrium The right atrium is normal by two-dimensional imaging, color flow and Doppler imaging with no structural abnormalities, no thrombus formation present. Atrial Septum The interatrial septum appears normal with no evidence of a shunt. Aorta The aorta is normal by two-dimensional, color flow and Doppler interrogation. Mitral Valve Mild mitral annular calcification. Mild mitral regurgitation. Aortic Valve Aortic valve sclerosis. Tricuspid Valve There is mild tricuspid valve regurgitation. Pulmonic Valve Trivial pulmonic valve regurgitation. Vessels The pulmonary artery appears normal. The inferior vena cava pulmonary and hepatic veins appear normal. Pericardium The pericardium is normal by two-dimensional imaging. There is no significant pericardial effusion. CONCLUSIONS Indication: Malignancy. Normal LV size and function. Estimated EF is 55 to 60%. Stage I diastolic dysfunction. Normal RV size and function. Normal RVSP 25 mmHg. Mild aortic valve sclerosis without stenosis. Mild TR and trace MR. No pericardial effusion. Dharmesh Martin (Electronically Signed) Final Date: 30 Dec 2024 17:32
== END | disposition home or self-care (01) ==
LOC: SDIM 13:46
PROVIDERS: PCP Internal Medicine; Referring Provider Internal Medicine Hematology & Oncology; Visit Provider Internal Medicine Hematology & Oncology
DX: I08.3 Combined rheumatic disorders of mitral, aortic and tricuspid valves (principal); C50.912 Malignant neoplasm of unspecified site of left female breast
CPT/HCPCS: 93306

== ENCOUNTER → 2025-01-03 | Outpatient (CLI) | payer BC, SELFPAY ==
--- NOTE | 2025-01-03 09:30 | XR_ITS ---
Examination: CT chest with intravenous contrast CT chest without intravenous contrast 2-D reconstructions Date and time of exam:January 03, [address] chest 05/13/[address] scan 04/28/2024 INDICATIONS: Diagnosis left breast cancer post mastectomy 2022, bilateral pulmonary nodules noted on CT chest study dating to December 14, 2023 CTDI:vol (mGy) 22.3 DLP: (mGycm) 836 Technique: Multiple axial sections of the thorax have been obtained. 3 mm slice thickness, from the hemidiaphragms to above the apices of the lungs. Mediastinal and lung density settings have been obtained. Intravenous contrast administered 60 cc Isovue-370. Noncontrast images have also been obtained. 2-D sagittal coronal images obtained. Low dose protocols were performed. One or more of the following dose reduction techniques were used; automated exposure control, adjustment of the mA and/or KV according to patient size, use of iterative reconstruction technique. Findings: No thoracic aortic aneurysm dilatation Pulmonary artery segments are not enlarged No paratracheal tracheobronchial or bronchopulmonary adenopathy Stable bilateral subcentimeter pulmonary nodules dating to CT chest examination December 14, 2023 No interval pneumonia or pulmonary edema Left mastectomy No breast chest wall masses or axillary lymphadenopathy Fatty infiltration throughout the liver No gallstones No pancreatic mass 1 mm upper pole left renal calculus IMPRESSION: Stable bilateral subcentimeter pulmonary nodules dating to CT chest examination December 14, 2023 No new pulmonary nodules 1 mm upper pole left renal calculus
== END | disposition home or self-care (01) ==
LOC: CCTX 09:24
PROVIDERS: Referring Provider Internal Medicine Hematology & Oncology; Visit Provider Internal Medicine Hematology & Oncology
DX: R91.8 Other nonspecific abnormal finding of lung field (principal); N20.0 Calculus of kidney; C50.912 Malignant neoplasm of unspecified site of left female breast
CPT/HCPCS: 71270; A4649; Q9967

== ENCOUNTER → 2025-02-06 | Outpatient (CLI) | payer BC, SELFPAY ==
[2025-02-06 08:45] LABS: Basophils # (Auto) 0.1 Thou/mm3 (0.0-0.2); Basophils % (Auto) 0 % (0-2.5); Eosinophils # (Auto) 0.1 Thou/mm3 (0.0-0.5); Eosinophils % (Auto) 1 % (0-10); Hematocrit 45.7 % (36.0-46.0); Hemoglobin 15.7 g/dL (12.0-16.0); Immature Granulocytes % (Auto) 0 % (0-0); Immature Granulocytes Auto 0.05 Thou/mm3 (0.00-0.00); Lymphocytes # (Auto) 5.8 Thou/mm3 (1.0-4.8); Lymphocytes % (Auto) 41 % (10-50); Mean Corpuscular HGB Conc 34.4 g/dl (31.0-37.0); Mean Corpuscular Hemoglobin 31.1 pg (25.0-35.0); Mean Corpuscular Volume 91 fL (80-100); Monocytes # (Auto) 1.1 Thou/mm3 (0.0-0.8); Monocytes % (Auto) 7 % (0-12); Neutrophils # (Auto) 7.2 Thou/mm3 (1.8-7.7); Neutrophils % (Auto) 50 % (37-80); Nucleated Red Blood Cell % 0 /100 WBC (0); Platelet Count 383 Thou/mm3 (140-440); RDW Standard Deviation 41.4 fL (36.4-46.3); Red Blood Count 5.05 Miln/mm3 (4.00-5.20); White Blood Count 14.4 Thou/mm3 (3.6-11.0)
[2025-02-06 08:59] LABS: C-Reactive Protein < 0.5 mg/dL (0.0-0.9); Free T4 (Free Thyroxine) 1.27 ng/dL (0.89-1.76); Thyroid Stimulating Hormone 4.27 uIU/mL (0.55-4.78)
[2025-02-09 06:59] LABS: T3,Total* 73 ng/dL (76-181)
== END | disposition home or self-care (01) ==
LOC: COPL 07:29
PROVIDERS: PCP Internal Medicine; Referring Provider Internal Medicine Endocrinology, Diabetes & Metabolism
DX: E06.3 Autoimmune thyroiditis (principal); E04.9 Nontoxic goiter, unspecified; R21 Rash and other nonspecific skin eruption
CPT/HCPCS: 36415; 84439; 84443; 84480; 85025; 86140

== ENCOUNTER → 2025-02-07 | Outpatient (CLI) | payer BC, SELFPAY ==
--- NOTE | 2025-02-07 14:30 | XR_ITS ---
Examination: Abdomen sonogram, complete Date and time of exam: February 07, 2025 1455 hours INDICATIONS: Epigastric pain beginning 10 minutes ago, elevated liver function tests on laboratory examination November 24, 2024. Technique: Multiple real-time grayscale transabdominal sonographic images of the abdomen have been obtained. Findings: Normal gallbladder Normal common bile duct 0.4 cm Pancreatic head 2.9 cm Aorta not enlarged Liver 15.3 cm fatty infiltration Normal hepatopedal portal venous flow Patent IVC Right kidney 10.9 cm cortex 2.6 cm Left kidney 11.0 cm cortex 3.0 cm 9 mm mid pole left renal calculus Mild right moderate left renal parenchymal scar formation Spleen 8.9 cm IMPRESSION: Normal gallbladder Fatty infiltration throughout the liver 9 mm nonobstructing left renal calculus
== END | disposition home or self-care (01) ==
PROVIDERS: PCP Internal Medicine; Referring Provider Internal Medicine; Visit Provider Internal Medicine
DX: K76.0 Fatty (change of) liver, not elsewhere classified (principal); N20.0 Calculus of kidney
CPT/HCPCS: 76700

== ENCOUNTER → 2025-03-30 | Outpatient (CLI) | payer BC, SELFPAY ==
[2025-03-30 09:51] LABS: Basophils # (Auto) 0.1 Thou/mm3 (0.0-0.2); Basophils % (Auto) 1 % (0-2.5); Eosinophils # (Auto) 0.3 Thou/mm3 (0.0-0.5); Eosinophils % (Auto) 4 % (0-10); Hematocrit 46.3 % (36.0-46.0); Hemoglobin 16.0 g/dL (12.0-16.0); Immature Granulocytes Auto 0.02 Thou/mm3 (0.00-0.00); Lymphocytes # (Auto) 2.9 Thou/mm3 (1.0-4.8); Lymphocytes % (Auto) 41 % (10-50); Mean Corpuscular HGB Conc 34.6 g/dl (31.0-37.0); Mean Corpuscular Hemoglobin 31.0 pg (25.0-35.0); Mean Corpuscular Volume 90 fL (80-100); Monocytes # (Auto) 0.6 Thou/mm3 (0.0-0.8); Monocytes % (Auto) 8 % (0-12); Neutrophils # (Auto) 3.4 Thou/mm3 (1.8-7.7); Neutrophils % (Auto) 47 % (37-80); Nucleated Red Blood Cell # 0.00 Thou/mm3 (0.00-0.00); Nucleated Red Blood Cell % 0 /100 WBC (0); Platelet Count 365 Thou/mm3 (140-440); RDW Standard Deviation 41.9 fL (36.4-46.3); Red Blood Count 5.16 Miln/mm3 (4.00-5.20); White Blood Count 7.2 Thou/mm3 (3.6-11.0)
[2025-03-30 10:11] LABS: Alanine Aminotransferase 36 U/L (10-49); Albumin, Serum 5.2 gm/dL (3.4-4.8); Albumin/Globulin Ratio 2.1 (1.2-2.2); Alkaline Phosphatase 109 U/L (46-116); Anion Gap 10 (7-16); Aspartate Amino Transferase 32 U/L (0-34); BUN/Creatinine Ratio 15 Ratio (12-20); Bilirubin,Total 0.3 mg/dL (0.3-1.2); Blood Urea Nitrogen 12 mg/dL (9-23); Calcium 10.9 mg/dL (8.3-10.6); Calcium (Corrected) 10.9 mg/dL (8.5-10.1); Carbon Dioxide 23.5 mMol/L (20.0-31.0); Chloride 107 mMol/L (98-107); Creatinine (Component) 0.8 mg/dL (0.6-1.3); Free T4 (Free Thyroxine) 1.44 ng/dL (0.89-1.76); Globulin 2.5 gm/dL (2.3-3.5); Glucose 113 mg/dL (74-106); Osmolality,Calculated 280 (275-295); Potassium 4.9 mMol/L (3.4-5.1); Sodium 140 mMol/L (136-145); Thyroid Stimulating Hormone 1.82 uIU/mL (0.55-4.78); Total Protein 7.7 gm/dL (5.7-8.2); eGFR > 60 See Note
[2025-03-30 11:10] LABS: C-Reactive Protein < 0.2 mg/dL (0.0-0.9)
[2025-03-30 12:02] LABS: Cocci Serology, IgM Negative (Negative)
[2025-03-31 15:11] LABS: Cocci Serology, IgG Negative (Negative)
[2025-04-05 17:49] LABS: Sjogren's antibody (SS-A) <1.0 NEG AI (<1.0 NEGATIVE); Sm Antibody <1.0 NEG AI (<1.0 NEGATIVE)
[2025-04-06 06:49] LABS: ANA Pattern CYTOPLASMIC; ANA Screen, IFA POSITIVE (NEGATIVE); ANA Titer 1:80 titer; CCP Antibody (IgG)* <16 Units; DNA (ds) Antibody* 4 IU/mL; Immunoglobulin A 131 mg/dL (70-320); Scl-70 Antibody* <1.0 NEG AI (<1.0 NEGATIVE); Sjogren's Antibody (SS-B) <1.0 NEG AI (<1.0 NEGATIVE); Sm/RNP Antibody <1.0 NEG AI (<1.0 NEGATIVE); tTG Ab, IgA <1.0 U/mL
== END | disposition home or self-care (01) ==
LOC: COPL 08:42
PROVIDERS: PCP Internal Medicine; Referring Provider Allergy & Immunology; Visit Provider Allergy & Immunology
DX: R23.4 Changes in skin texture (principal); L25.3 Unspecified contact dermatitis due to other chemical products; L50.0 Allergic urticaria; T78.1XXA Other adverse food reactions, not elsewhere classified, initial encounter
CPT/HCPCS: 36415; 80053; 82784; 84439; 84443; 85025; 86038; 86140; 86200; 86225; 86235; 86331; 86364; 86635

== ENCOUNTER → 2025-05-15 | Outpatient (CLI) | payer BC, SELFPAY ==
[2025-05-15 08:24] LABS: Basophils # (Auto) 0.1 Thou/mm3 (0.0-0.2); Basophils % (Auto) 1 % (0-2.5); Eosinophils # (Auto) 0.4 Thou/mm3 (0.0-0.5); Eosinophils % (Auto) 5 % (0-10); Hematocrit 44.5 % (36.0-46.0); Hemoglobin 15.3 g/dL (12.0-16.0); Immature Granulocytes Auto 0.02 Thou/mm3 (0.00-0.00); Lymphocytes # (Auto) 2.9 Thou/mm3 (1.0-4.8); Lymphocytes % (Auto) 38 % (10-50); Mean Corpuscular HGB Conc 34.4 g/dl (31.0-37.0); Mean Corpuscular Hemoglobin 30.8 pg (25.0-35.0); Mean Corpuscular Volume 90 fL (80-100); Monocytes # (Auto) 0.5 Thou/mm3 (0.0-0.8); Monocytes % (Auto) 6 % (0-12); Neutrophils # (Auto) 3.8 Thou/mm3 (1.8-7.7); Neutrophils % (Auto) 49 % (37-80); Nucleated Red Blood Cell # 0.00 Thou/mm3 (0.00-0.00); Nucleated Red Blood Cell % 0 /100 WBC (0); Platelet Count 362 Thou/mm3 (140-440); RDW Standard Deviation 41.7 fL (36.4-46.3); Red Blood Count 4.97 Miln/mm3 (4.00-5.20); White Blood Count 7.6 Thou/mm3 (3.6-11.0)
[2025-05-15 08:27] LABS: Alanine Aminotransferase 29 U/L (10-49); Albumin, Serum 4.8 gm/dL (3.4-4.8); Albumin/Globulin Ratio 1.7 (1.2-2.2); Alkaline Phosphatase 107 U/L (46-116); Anion Gap 9 (7-16); Aspartate Amino Transferase 19 U/L (0-34); BUN/Creatinine Ratio 16 Ratio (12-20); Bilirubin,Total 0.3 mg/dL (0.3-1.2); Blood Urea Nitrogen 14 mg/dL (9-23); Calcium 10.2 mg/dL (8.3-10.6); Calcium (Corrected) 10.2 mg/dL (8.5-10.1); Carbon Dioxide 23.6 mMol/L (20.0-31.0); Chloride 107 mMol/L (98-107); Creatinine (Component) 0.9 mg/dL (0.6-1.3); Free T4 (Free Thyroxine) 1.28 ng/dL (0.89-1.76); Globulin 2.8 gm/dL (2.3-3.5); Glucose 132 mg/dL (74-106); Osmolality,Calculated 281 (275-295); Potassium 4.3 mMol/L (3.4-5.1); Sodium 140 mMol/L (136-145); Thyroid Stimulating Hormone 2.37 uIU/mL (0.55-4.78); Total Protein 7.6 gm/dL (5.7-8.2); eGFR > 60 See Note
[2025-05-17 15:34] LABS: A. alternata (M6) IgE <0.10 kU/L; A. fumigatus (M3) Class 0; A. fumigatus (M3) IgE <0.10 kU/L; Alder (T2) Class 1; Alder (T2) IgE 0.61 kU/L; Bermuda Grass (G2) Class 2; Bermuda Grass (G2) IgE 1.32 kU/L; Birch (T3) Class 1; Birch (T3) IgE 0.67 kU/L; C. herbarum (M2) Class 0; C. herbarum (M2) IgE <0.10 kU/L; Cat Dander (e1) Class 0; Cat Dander (e1) IgE <0.10 kU/L; Cockroach (I6) IgE 0.52 kU/L; Common Pigweed (W14) IgE 0.81 kU/L; Common Ragweed (W1) Class 2; Common Ragweed (W1) IgE 0.98 kU/L; D. farinae (D2) Class 0/1; D. farinae (D2) IgE 0.31 kU/L; D. pteronyssinus (D1) Class 0/1; D. pteronyssinus (D1) IgE 0.10 kU/L; Dog Dander (E5) IgE <0.10 kU/L; Elm (T8) IgE 0.93 kU/L; Mountain Cedar (T6) Class 2; Mountain Cedar (T6) IgE 0.73 kU/L; Mouse Ur Prot (E72) IgE <0.10 kU/L; Mugwort (W6) Class 1; Mugwort (W6) IgE 0.65 kU/L; Oak White (T7) Class 2; Oak White (T7) IgE 0.92 kU/L; Olive Tree (T9) Class 2; Olive Tree (T9) IgE 0.74 kU/L; P. notatum (M1) Class 0; P. notatum (M1) IgE <0.10 kU/L; Russian Thistle (W11) Class 2; Russian Thistle (W11) IgE 1.15 kU/L; Sycamore (T11) IgE 1.02 kU/L; Timothy Grass (G6) IgE 1.16 kU/L; White Mulberry (T70) IgE 0.58 kU/L
[2025-05-18 06:30] LABS: A. alternata (M6) Class 0; Cockroach (I6) Class 1; Common Pigweed (W14) Class 2; Dog Dander (E5) Class 0; Elm (T8) Class 2; IgE, Serum* 101 kU/L (114 OR LESS); IgE, Total, Serum 102 kU/L (114 OR LESS); Mouse Ur Prot (E72) Class 0; Sycamore (T11) Class 2; T3,Total* 86 ng/dL (76-181); Timothy Grass (G6) Class 2; White Mulberry (T70) Class 1
== END | disposition home or self-care (01) ==
LOC: COPL 07:20
PROVIDERS: PCP Internal Medicine; Referring Provider Internal Medicine Hematology & Oncology; Visit Provider Internal Medicine Endocrinology, Diabetes & Metabolism
DX: L50.0 Allergic urticaria (principal); J30.1 Allergic rhinitis due to pollen; R23.4 Changes in skin texture; E06.3 Autoimmune thyroiditis; E04.9 Nontoxic goiter, unspecified; C50.912 Malignant neoplasm of unspecified site of left female breast
CPT/HCPCS: 36415; 80053; 82785; 84439; 84443; 84480; 85025; 86003

== ENCOUNTER 2025-05-25 12:58 | Outpatient (RCR) | payer BC, SELFPAY ==
--- NOTE | 2025-05-25 14:00 | CTCFLWUP_ITS ---
Patient: XIMENA JIANG : 1960 Page 10 of 14 FOLLOW UP NOTE DATE OF SERVICE: 05/25/2025 NAME: XIMENA JIANG ACCOUNT: [id number] : 1960 AGE: 64 INTERVAL HISTORY: Deidre,is here for follow up. Patient is complaing of body ache . patient have lost 8 pounds of unintentional . A patient with a history of breast cancer, Heath's thyroiditis, and hypertension, presents for follow-up of left-sided face pain and routine cancer surveillance. The patient reports improvement in her left-sided face pain, which she initially experienced in July. The pain, which previously worsened after working out, has now reduced to a dull ache without severe episodes. The patient has been attending lymphedema clinic and reports good progress, performing exercises at home and using a prosthesis. She mentions waking up around 3 AM every morning, possibly due to hot flashes. The patient also reports difficulty losing weight despite eating little, which she attributes to her hypothyroidism. Deidre has a 30 pack-year smoking history and undergoes annual CT scans for lung nodule surveillance. She reports stable bilateral nodules with no new pulmonary nodules on her most recent scan. 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 Regarding her breast cancer follow-up, Deidre's last mammogram in July showed a 10 mm focal asymmetry in the right breast, with a negative ultrasound. A subsequent breast MRI suggested a diagnostic mammogram in 6 months. The patient continues to take anastrozole daily as prescribed. Deidre reports adopting a new diet two weeks ago, focusing on fish, gluten- free options, low-carb choices, and plenty of vegetables and fruits. She is adhering to her medication regimen, including calcium and vitamin D supplements, and obtaining vitamin D over the counter. 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 - Hyperthyroidism (initially, prior to hypothyroidism) - Hypertension (chronic) - Left atrial enlargement - Right bundle branch block - Mild right ventricular systolic dysfunction - Lymphedema Surgical History - Thyroid procedure (likely removal of thyroid tissue) Medications and Supplements - Anastrozole - Taken daily until 2030 - Can cause osteoporosis - Calcium - Taken daily - Vitamin D - Taken daily - Obtained over the counter - Centrum Silver multivitamin for women - Taken daily - Contains B12 Social History - Substance Use: 30 pack-year smoking history - Diet: Recently started gluten-free, low-carb diet with lots of vegetables, fruits, and fish (2 weeks ago) - Exercise: Performs exercises at home for lymphedema management Review of Systems General: Positive for difficulty losing weight. HEENT: Positive for left-sided face pain (improved to dull ache). Cardiovascular: Positive for mild right ventricular strain. Respiratory: Positive for throat wheezing. Neurological: Positive for waking up at 3 AM every morning. Endocrine: Positive for hot flashes. ONCOLOGY HISTORY:?[facility] Hx? ONCOLOGY HISTORY: DIAGNOSIS: Left breast cancer s/p mastectomy DATE OF DIAGNOSIS: 11/11/2023 STAGE/TNM: Stage [id number] Prosigna score 56- intermediate TREATMENT HISTORY: Care?Plan Start?Date Cycle Day Intent HISTORY OF PRESENT ILLNESS: Ximena Jiang is a 64-year-old ENG speaking female with [id number] history has the following oncology history. 04/08/2022: CT scan of the chest without IV contrast was done as a screening test for history of smoking 04/15/2022: CT scan of the abdomen and pelvis with IV contrast 06/06/2022: Endocervix as well as endometrial biopsy 08/06/2023: Bilateral screening mammograms 09/10/2023: Left breast ultrasound? 11/11/2023: Ultrasound-guided percutaneous left breast 1:00 nodule biopsy? 12/14/2023: CT scan of the chest without IV contrast was done which was compared to a previous CT scan done on April 08, 2022 11/24/2023: CT scan of the abdomen and pelvis with IV contrast 01/01/2024: Left breast total mastectomy and sentinel lymph node biopsy? Prosigna (R) breast cancer gene signature assay test 01/26/2024: BRCA 1 and 2 test? 02/26/2024: Bone density test done 04/28/2024: PET/CT scan? OTHER MEDICAL HISTORY/CONDITIONS: Left breast cancer - dx 11/11/23 Rheumatoid arthritis Hypothyroid T and A - as child x 1 and tubal ligation 1993 ?Clone Other Med Hx? FAMILY HISTORY: Father:?Prostate?-?dx?80's Mother:?unknown?-?dx?40 ?Clone Family Hx? 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 Tobacco?Pack?per?Day:?1 Tobacco?Use?Years:?30 Tobacco?Use:?1/2?PPD?now ETOH?Use:?Socailly Drug?Note:?Denies Social?History?Note:?Lives?with? ?Clone Social Hx? SHEEP CLIPPER HISTORY: Menarche?-?Age:?9 Menopause:?2006 :?7 Live?Births:?6 Age?1st?:?18 Gynecological?Note:?1? ?Clone SHEEP CLIPPER Hx? MEDICATIONS: 1. anastrozole - 1 mg 1 tab 1 tab po q daily 2. Arimidex - 1 mg 1 tab Daily 3. BenadryL - 1 % 1 As needed 4. Citracal + D Slow Release - 600 mg-12.5 mcg (500 unit) 1 tab one tab po twice a day 5. diazePAM - 5 mg 1 tab As directed 6. levothyroxine - 88 mcg 1 tab Daily 7. lisinopril - 2.5 mg 1 tab Daily 8. metoprolol succinate - 25 mg 1 tab Daily 9. ZyrTEC - 10 mg 1 tab Daily?[facility]ra Meds? Medications Last Reconciled by Melisa Dumont MD on 05/25/2025 ALLERGIES: meloxicam; codeine sulfate; codeine sulfate REVIEW OF SYSTEMS: A complete 14-point review of systems was performed and is negative except as noted in interval history. PHYSICAL EXAMINATION:?[facility] PE? VITAL SIGNS: Temperature?98.8, B/P?144/89, Oxygen?Saturation?96% Weight?176?lbs PAIN: 0 - No pain ECOG Performance Status: 0 - Asymptomatic and fully active GENERAL APPEARANCE: Appears well, in no apparent distress, appropriately interactive. HEENT: Normocephalic, no temporal wasting, normal conjunctiva, no scleral icterus, normal hearing, lips without lesions, neck normal range of motion. CARDIOVASCULAR: Not assessed. PULMONARY: Normal respiratory effort, no respiratory distress or use of accessory muscles, speaking in full sentences, no tachypnea. EXTREMITIES: No pedal edema or cyanosis. SKIN: Normal skin appearance. NEUROLOGIC: Alert and oriented x4. PSHYCHIATRIC: Appropriate affect, mood normal, behavior normal, intact thought and speech. Metastatic breast mastectomy site clean. Patient has lymphedema on the left arm. No other palpable masses in either breast or chest Laboratory, Imaging, and Diagnostic Test Results - Echocardiogram: - Ejection fraction: 60-65% (normal) - Left atrial enlargement - Right bundle branch block - Mild strain on the heart - Reduced right ventricular systolic function - Chest CT scan: - Stable bilateral nodules - No new pulmonary nodules - Mammogram (July): - 10 mm focal asymmetry in the right breast - Breast ultrasound: - Negative - Breast MRI: - Suggested diagnostic mammogram in 6 months - Bone density scan (February 2024): - Normal LABORATORY DATA: I have personally reviewed and interpreted each of the patient?s relevant lab tests, abnormal findings are below: Date 03/30/25 05/15/25 ??WHITE?BLOOD?COUNT?(Thou/mm3) 7.2 7.6 ??RED?BLOOD?COUNT?(Miln/mm3) 5.16 4.97 ??HEMOGLOBIN?(gm/dl) 16.0 15.3 ??HEMATOCRIT?(%) 46.3?H 44.5 ??PLATELET?COUNT?(Thou/mm3) 365 362 ??NEUTROPHILS?%,?AUTO?(%) 47 49 ??LYMPH?%,?AUTO?(%) 41 38 ??NEUTROPHILS,?AUTO?(Thou/mm3) 3.4 3.8 ??GLUCOSE,RANDOM?(mg/dL) 113?H 132?H ??BLOOD?UREA?NITROGEN?(mg/dL) 12 14 ??CREATININE?(mg/dL) 0.80 0.90 ??SODIUM?(mmol/L) 140 140 ??POTASSIUM?(mmol/L) 4.9 4.3 ??CHLORIDE?(mmol/L) 107 107 ??CrCl?(CandG)?(ml/min) 73.03 64.92 ??AST/SGOT?(Unit/L) 32 19 ??ALT/SGPT?(Unit/L) 36 29 ??ALKALINE?PHOSPHATASE?(Unit/L) 109 107 ??BILIRUBIN,?TOTAL?(mg/dL) 0.3 0.3 ??PROTEIN?TOTAL?(gm/dl) 7.7 7.6 ??ALBUMIN,?SERUM?(gm/dl) 5.2?H 4.8 ??GLOBULIN?(gm/dl) 2.5 2.8 ??ALBUMIN/GLOBULIN?RATIO 2.1 1.7 ??CALCIUM,?SERUM?(mg/dL) 10.9?H 10.2 ??CALCIUM?SERUM?(CORRECTED)?(mg/dL) 10.9?H 10.2?H ASSESSMENT/PLAN:?Addi Sanchez Assessment/Plan? 1. Stage Ia (pT1c, N0, M0) low-grade, ER positive, DE positive, HER2/tammy negative multifocal invasive ductal carcinoma of the left breast. Prosigna (R) breast cancer gene signature assay score 57 (intermediate risk) Bone density test (02/26/2024) showed normal mineralization. BRCA 1 and 2 negative. S/p left total mastectomy with sentinel lymph node biopsy (01/01/2024). Patient have lymphedema associated Deidre, a female patient with a history of breast cancer, Heath's thyroiditis, and hypertension, presents for follow-up of left-sided face pain and management of multiple chronic conditions. Left-sided face pain Assessment: Patient reported left-sided face pain in July, which worsened after working out. Currently, the pain has improved to a dull ache without severe episodes. The etiology of the pain is not clearly established in the transcript. 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 Left atrial enlargement and right bundle branch block were noted, likely due to chronic hypertension. Mild strain on the heart and reduced right ventricular systolic function were also observed. Plan: - Continue management of hypertension (specific treatment not mentioned) - Advised to keep room temperature cool at night to manage hot flashes Pulmonary nodules Assessment: Patient has a 30 pack-year smoking history and undergoes annual CT scans. Recent scans show stable bilateral nodules with no new pulmonary nodules identified. Plan: - Schedule another chest CT scan - Follow up in 6 months - Strongly advise smoking cessation Heath's thyroiditis Assessment: Patient has a history of Heath's thyroiditis, which is causing hypothyroidism. She reports difficulty losing weight despite reduced caloric intake, which is consistent with hypothyroidism. Patient also mentions a history of Mont Belvieu's syndrome when younger, leading to an overactive thyroid. Plan: - Continue current thyroid management (specific treatment not mentioned) - Encourage weight maintenance and periodic weight checks - Recommend plant-based, gluten-free, low-carb diet with plenty of vegetables and fruits Lymphedema Assessment: Patient is attending lymphedema clinic and reports positive outcomes. She is performing exercises at home and has obtained a prosthesis. Plan: - Continue with lymphedema clinic - Maintain home exercise regimenORDERS: Order # Description [id number] 3D Mammogram Diagnostic + Right ORDERS: Order # Description [id number] 3D Mammogram Diagnostic + Right [id number] Initial PET/CT of Skull to Mid-Thigh [id number] 3D Mammogram Screening + Bilateral [id number] Comprehensive Metabolic Panel - 12 + CBC with Auto Diff [id number] RETURN TO CLINIC: I reviewed the diagnosis, prognosis, and recommended treatment/procedure options with the patient (and/or their legal employment program representative), including the potential benefits, risks, side effects and alternative therapies. We also discussed the option of no treatment and the possibility of clinical trial participation, if applicable. All questions were addressed, and they demonstrated understanding. They provided informed consent to proceed with the proposed plan of care. BILLING AND COMPLIANCE: I reviewed external records from providers outside my specialty as summarized above. I spent a total of 50 minutes on this patient?s care on the day of their visit excluding time spent related to any billed procedures. This time includes time spent with the patient as well as time spent documenting in the medical record, reviewing patients records and tests, obtaining history, placing orders, communicating with other healthcare professionals, counseling the patient, family or caregiver, and/or care coordination for the diagnoses above. Electronically Signed by: Jose De Jesus Sanchez MD T: 1:57 PM CC: Courtney?Lee,? PCP: Courtney Howard Referring: Courtney Howard This document was completed utilizing speech recognition software. Grammatical errors, random word insertions, pronoun errors, and incomplete sentences are an occasional consequence of this system due to software limitations, ambient noise, and hardware issues. Any formal questions or concerns about the content, text or information contained within the body of this dictation should be directly addressed to the provider for clarification.
== END 2025-06-16 23:59 | disposition home or self-care (01) ==
LOC: SCTC 12:58
PROVIDERS: PCP Internal Medicine; Referring Provider Internal Medicine; Visit Provider Internal Medicine Hematology & Oncology
DX: C50.412 Malignant neoplasm of upper-outer quadrant of left female breast (principal); Z17.0 Estrogen receptor positive status [ER+]; Z17.21 Progesterone receptor positive status; Z17.32 Human epidermal growth factor receptor 2 negative status; Z90.12 Acquired absence of left breast and nipple; R91.8 Other nonspecific abnormal finding of lung field; Z87.891 Personal history of nicotine dependence; E06.3 Autoimmune thyroiditis; I89.0 Lymphedema, not elsewhere classified
CPT/HCPCS: 99212; G0463

== ENCOUNTER → 2025-05-30 | Outpatient (CLI) | payer BC, SELFPAY ==
[2025-05-30 08:40] LABS: Glucose Estimated Average 134 mg/dL (80-131); Hemoglobin A1C 6.3 % Hgb (4.8-6.0)
[2025-05-30 08:44] LABS: Cardiac Risk Estimate 4.4 RATIO (3.7-5.6); Cholesterol 198 mg/dL (132-200); HDL Cholesterol 45 mg/dL (40-60); LDL Cholesterol,Calculated 95 mg/dL (0-130); Triglycerides 290 mg/dL (30-150)
== END | disposition home or self-care (01) ==
LOC: COPL 07:07
PROVIDERS: PCP Internal Medicine; Referring Provider Internal Medicine; Visit Provider Internal Medicine
DX: R73.03 Prediabetes (principal); Z13.6 Encounter for screening for cardiovascular disorders
CPT/HCPCS: 36415; 80061; 83036

== ENCOUNTER → 2025-06-15 | Outpatient (CLI) | payer BC, SELFPAY ==
--- NOTE | 2025-06-15 10:00 | XR_ITS ---
Examination: Diagnostic digital mammography, unilateral, right Computer aided detection 3-D breast Tomosynthesis, unilateral Date and time of exam: June 15, 2025, 0959 hours INDICATIONS: Mammogram August 08, 2020 for 10 mm focal asymmetry outer right breast cc view, 4.8 cm from the nipple Technique: Nonmagnified MLO, CC views of the right breast have been obtained, reconstructed from 3-D Tomosynthesis images. R2 computer aided detection program utilized for evaluation of suspicious masses and/or abnormal calcifications. 3-D Tomosynthesis images obtained. Findings: Scattered areas of fibroglandular density There does remain 8 mm round nodule upper outer right breast on the spot compression views Impression: BI-RADS category 3: Probably benign findings Recommend 1 additional 6-month right mammogram follow-up
== END | disposition home or self-care (01) ==
LOC: CDIM 09:50
PROVIDERS: Referring Provider Internal Medicine Hematology & Oncology; Visit Provider Internal Medicine Hematology & Oncology
DX: R92.331 Mammographic heterogeneous density, right breast (principal); C50.912 Malignant neoplasm of unspecified site of left female breast
CPT/HCPCS: 77061; 77065; G0279

== ENCOUNTER → 2025-07-19 | Outpatient (CLI) | payer MEDICARE, SELFPAY ==
--- NOTE | 2025-07-19 11:00 | XR_ITS ---
Examination: CT chest with intravenous contrast CT chest without intravenous contrast 2-D reconstructions Date and time of exam: July 19, 2025, 1217 hours, comparison January 03, 2025, May 13, 2024 INDICATIONS: History left breast cancer post left mastectomy, CT chest January 03, 2025 bilateral subcentimeter pulmonary nodules stable compared with CT examination 05/13/2024 CTDI:vol (mGy) 22.2 DLP: (mGycm) 834 Technique: Multiple axial sections of the thorax have been obtained. 3 mm slice thickness, from the hemidiaphragms to above the apices of the lungs. Mediastinal and lung density settings have been obtained. Intravenous contrast administered 60 cc [id number]-[id number]. Noncontrast images have also been obtained. 2-D sagittal coronal images obtained. Low dose protocols were performed. One or more of the following dose reduction techniques were used; automated exposure control, adjustment of the mA and/or KV according to patient size, use of iterative reconstruction technique. Findings: No thoracic aortic aneurysm dilatation Pulmonary artery opacification is reduced Moderate calcification left anterior descending and left circumflex coronary arteries No paratracheal tracheobronchial or bronchopulmonary adenopathy Bilateral pulmonary nodules are identical in size compared to 05/13/2024 No new pulmonary nodules Fatty infiltration throughout the liver No gallstones Spleen is not enlarged No adrenal mass Aorta normal size Kidneys partially visualized no hydronephrosis Intact osseous structures IMPRESSION: Bilateral pulmonary nodules are identical in size compared to CT chest 05/13/2024 No new pulmonary nodules
[2025-07-19 11:14] LABS: Basophils # (Auto) 0.1 Thou/mm3 (0.0-0.2); Basophils % (Auto) 1 % (0-2.5); Eosinophils # (Auto) 0.3 Thou/mm3 (0.0-0.5); Eosinophils % (Auto) 3 % (0-10); Hematocrit 46.4 % (36.0-46.0); Hemoglobin 16.1 g/dL (12.0-16.0); Immature Granulocytes Auto 0.01 Thou/mm3 (0.00-0.00); Lymphocytes # (Auto) 4.0 Thou/mm3 (1.0-4.8); Lymphocytes % (Auto) 43 % (10-50); Mean Corpuscular HGB Conc 34.7 g/dl (31.0-37.0); Mean Corpuscular Hemoglobin 31.0 pg (25.0-35.0); Mean Corpuscular Volume 89 fL (80-100); Monocytes # (Auto) 0.6 Thou/mm3 (0.0-0.8); Monocytes % (Auto) 7 % (0-12); Neutrophils # (Auto) 4.3 Thou/mm3 (1.8-7.7); Neutrophils % (Auto) 46 % (37-80); Nucleated Red Blood Cell # 0.00 Thou/mm3 (0.00-0.00); Nucleated Red Blood Cell % 0 /100 WBC (0); Platelet Count 335 Thou/mm3 (140-440); RDW Standard Deviation 42.2 fL (36.4-46.3); Red Blood Count 5.20 Miln/mm3 (4.00-5.20); White Blood Count 9.3 Thou/mm3 (3.6-11.0)
[2025-07-19 11:32] LABS: Alanine Aminotransferase 24 U/L (10-49); Albumin, Serum 5.3 gm/dL (3.4-4.8); Albumin/Globulin Ratio 1.8 (1.2-2.2); Alkaline Phosphatase 106 U/L (46-116); Anion Gap 9 (7-16); Aspartate Amino Transferase 20 U/L (0-34); BUN/Creatinine Ratio 12 Ratio (12-20); Bilirubin,Total 0.4 mg/dL (0.3-1.2); Blood Urea Nitrogen 11 mg/dL (9-23); Calcium 10.3 mg/dL (8.3-10.6); Calcium (Corrected) 10.3 mg/dL (8.5-10.1); Carbon Dioxide 27.5 mMol/L (20.0-31.0); Chloride 106 mMol/L (98-107); Creatinine (Component) 0.9 mg/dL (0.6-1.3); Globulin 3.0 gm/dL (2.3-3.5); Glucose 105 mg/dL (74-106); Osmolality,Calculated 282 (275-295); Potassium 4.2 mMol/L (3.4-5.1); Sodium 142 mMol/L (136-145); Total Protein 8.3 gm/dL (5.7-8.2); eGFR > 60 See Note
== END | disposition home or self-care (01) ==
PROVIDERS: PCP Internal Medicine; Referring Provider Internal Medicine Hematology & Oncology; Visit Provider Internal Medicine Hematology & Oncology
DX: R91.8 Other nonspecific abnormal finding of lung field (principal); C50.912 Malignant neoplasm of unspecified site of left female breast
CPT/HCPCS: 36415; 71270; 80053; 85025; A4649; Q9967

== ENCOUNTER 2025-07-25 14:27 | Outpatient (RCR) | payer MEDICARE, SELFPAY ==
--- NOTE | 2025-07-25 17:01 | CTCFLWUP_ITS ---
Patient: XIMENA JIANG : 1960 Page 2 of 2 FOLLOW UP NOTE DATE OF SERVICE: 07/25/2025 NAME: XIMENA JIANG ACCOUNT: [id number] : 1960 AGE: 64 INTERVAL HISTORY: Patient is complaining of fatigue and tiredness. Patient never wakes up fresh in the morning Patient frequently wakes up at nighttime. Patient does not know if she snores but is frequently told by her partner that she snores at night. The patient has been attending lymphedema clinic and reports good progress, performing exercises at home and using a prosthesis. She mentions waking up around 3 AM every morning, possibly due to hot flashes. The patient also reports difficulty losing weight despite eating little, which she attributes to her hypothyroidism. Deidre has a 30 pack-year smoking history and undergoes annual CT scans for lung nodule surveillance. She reports stable bilateral nodules with no new pulmonary nodules on her most recent scan. 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 Regarding her breast cancer follow-up, Deidre's last mammogram in July showed a 10 mm focal asymmetry in the right breast, with a negative ultrasound. A subsequent breast MRI suggested a diagnostic mammogram in 6 months. The patient continues to take anastrozole daily as prescribed. Deidre reports adopting a new diet two weeks ago, focusing on fish, gluten- free options, low-carb choices, and plenty of vegetables and fruits. She is adhering to her medication regimen, including calcium and vitamin D supplements, and obtaining vitamin D over the counter. 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 - [place]'s syndrome in younger years - Hyperthyroidism (initially, prior to hypothyroidism) - Hypertension (chronic) - Left atrial enlargement - Right bundle branch block - Mild right ventricular systolic dysfunction - Lymphedema Surgical History - Thyroid procedure (likely removal of thyroid tissue) Medications and Supplements - Anastrozole - Taken daily until 2030 - Can cause osteoporosis - Calcium - Taken daily - Vitamin D - Taken daily - Obtained over the counter - Centrum Silver multivitamin for women - Taken daily - Contains B12 Social History - Substance Use: 30 pack-year smoking history - Diet: Recently started gluten-free, low-carb diet with lots of vegetables, fruits, and fish (2 weeks ago) - Exercise: Performs exercises at home for lymphedema management Review of Systems General: Positive for difficulty losing weight. HEENT: Positive for left-sided face pain (improved to dull ache). Cardiovascular: Positive for mild right ventricular strain. Respiratory: Positive for throat wheezing. Neurological: Positive for waking up at 3 AM every morning. Endocrine: Positive for hot flashes. ONCOLOGY HISTORY:?[facility] Hx? ONCOLOGY HISTORY: DIAGNOSIS: Left breast cancer s/p mastectomy DATE OF DIAGNOSIS: 11/11/2023 STAGE/TNM: Stage [id number] Prosigna score 56- intermediate TREATMENT HISTORY: Care?Plan Start?Date Cycle Day Intent HISTORY OF PRESENT ILLNESS: Ximena Jiang is a 64-year-old ENG speaking female with [id number] history has the following oncology history. 04/08/2022: CT scan of the chest without IV contrast was done as a screening test for history of smoking 04/15/2022: CT scan of the abdomen and pelvis with IV contrast 06/06/2022: Endocervix as well as endometrial biopsy 08/06/2023: Bilateral screening mammograms 09/10/2023: Left breast ultrasound? 11/11/2023: Ultrasound-guided percutaneous left breast 1:00 nodule biopsy? 12/14/2023: CT scan of the chest without IV contrast was done which was compared to a previous CT scan done on April 08, 2022 11/24/2023: CT scan of the abdomen and pelvis with IV contrast 01/01/2024: Left breast total mastectomy and sentinel lymph node biopsy? Prosigna (R) breast cancer gene signature assay test 01/26/2024: BRCA 1 and 2 test? 02/26/2024: Bone density test done 04/28/2024: PET/CT scan? OTHER MEDICAL HISTORY/CONDITIONS: Left breast cancer - dx 11/11/23 Rheumatoid arthritis Hypothyroid T and A - as child x 1 and tubal ligation 1993 ?Clone Other Med Hx? FAMILY HISTORY: Father:?Prostate?-?dx?80's Mother:?unknown?-?dx?40 ?[facility]one Family Hx? 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 Tobacco?Pack?per?Day:?1 Tobacco?Use?Years:?30 Tobacco?Use:?1/2?PPD?now ETOH?Use:?Socailly Drug?Note:?Denies Social?History?Note:?Lives?with? ?Clone Social Hx? [employer] ENGINEER HISTORY: Menarche?-?Age:?9 Menopause:?2006 :?7 Live?Births:?6 Age?1st?:?18 Gynecological?Note:?1? ?Clone [employer] ENGINEER Hx? MEDICATIONS: 1. anastrozole - 1 mg 1 tab 1 tab po q daily 2. Arimidex - 1 mg 1 tab Daily 3. BenadryL - 1 % 1 As needed 4. Citracal + D Slow Release - 600 mg-12.5 mcg (500 unit) 1 tab one tab po twice a day 5. diazePAM - 5 mg 1 tab As directed 6. levothyroxine - 88 mcg 1 tab Daily 7. lisinopril - 2.5 mg 1 tab Daily 8. metoprolol succinate - 25 mg 1 tab Daily 9. ZyrTEC - 10 mg 1 tab Daily?Palabra Meds? Medications Last Reconciled by Melisa Dumont MD on 05/25/2025 ALLERGIES: meloxicam; codeine sulfate; codeine sulfate REVIEW OF SYSTEMS: A complete 14-point review of systems was performed and is negative except as noted in interval history. PHYSICAL EXAMINATION:?[facility] PE? VITAL SIGNS: Temperature?99.8, B/P?151/82, Oxygen?Saturation?96% PAIN: 0 - No pain ECOG Performance Status: 0 - Asymptomatic and fully active GENERAL APPEARANCE: Appears well, in no apparent distress, appropriately interactive. HEENT: Normocephalic, no temporal wasting, normal conjunctiva, no scleral icterus, normal hearing, lips without lesions, neck normal range of motion. CARDIOVASCULAR: Not assessed. PULMONARY: Normal respiratory effort, no respiratory distress or use of accessory muscles, speaking in full sentences, no tachypnea. EXTREMITIES: No pedal edema or cyanosis. SKIN: Normal skin appearance. NEUROLOGIC: Alert and oriented x4. PSHYCHIATRIC: Appropriate affect, mood normal, behavior normal, intact thought and speech. Metastatic breast mastectomy site clean. Patient has lymphedema on the left arm. No other palpable masses in either breast or chest Laboratory, Imaging, and Diagnostic Test Results - Echocardiogram: - Ejection fraction: 60-65% (normal) - Left atrial enlargement - Right bundle branch block - Mild strain on the heart - Reduced right ventricular systolic function - Chest CT scan: - Stable bilateral nodules - No new pulmonary nodules - Mammogram (July): - 10 mm focal asymmetry in the right breast - Breast ultrasound: - Negative - Breast MRI: - Suggested diagnostic mammogram in 6 months - Bone density scan (February 2024): - Normal LABORATORY DATA: I have personally reviewed and interpreted each of the patient?s relevant lab tests, abnormal findings are below: Date 05/15/25 07/19/25 ??WHITE?BLOOD?COUNT?(Thou/mm3) 7.6 9.3 ??RED?BLOOD?COUNT?(Miln/mm3) 4.97 5.20 ??HEMOGLOBIN?(gm/dl) 15.3 16.1?H ??HEMATOCRIT?(%) 44.5 46.4?H ??PLATELET?COUNT?(Thou/mm3) 362 335 ??NEUTROPHILS?%,?AUTO?(%) 49 46 ??LYMPH?%,?AUTO?(%) 38 43 ??NEUTROPHILS,?AUTO?(Thou/mm3) 3.8 4.3 ??GLUCOSE,RANDOM?(mg/dL) 132?H 105 ??BLOOD?UREA?NITROGEN?(mg/dL) 14 11 ??CREATININE?(mg/dL) 0.90 0.90 ??SODIUM?(mmol/L) 140 142 ??POTASSIUM?(mmol/L) 4.3 4.2 ??CHLORIDE?(mmol/L) 107 106 ??CrCl?(CandG)?(ml/min) 64.92 64.19 ??AST/SGOT?(Unit/L) 19 20 ??ALT/SGPT?(Unit/L) 29 24 ??ALKALINE?PHOSPHATASE?(Unit/L) 107 106 ??BILIRUBIN,?TOTAL?(mg/dL) 0.3 0.4 ??PROTEIN?TOTAL?(gm/dl) 7.6 8.3?H ??ALBUMIN,?SERUM?(gm/dl) 4.8 5.3?H ??GLOBULIN?(gm/dl) 2.8 3.0 ??ALBUMIN/GLOBULIN?RATIO 1.7 1.8 ??CALCIUM,?SERUM?(mg/dL) 10.2 10.3 ??CALCIUM?SERUM?(CORRECTED)?(mg/dL) 10.2?H 10.3?H ASSESSMENT/PLAN:?Addi Sanchez Assessment/Plan? 1. Stage Ia (pT1c, N0, M0) low-grade, ER positive, [place] positive, HER2/tammy negative multifocal invasive ductal carcinoma of the left breast. Prosigna (R) breast cancer gene signature assay score 57 (intermediate risk) Bone density test (02/26/2024) showed normal mineralization. BRCA 1 and 2 negative. S/p left total mastectomy with sentinel lymph node biopsy (01/01/2024). Patient have lymphedema associated Deidre, a female patient with a history of breast cancer, Heath's thyroiditis, and hypertension, presents for follow-up of left-sided face pain and management of multiple chronic conditions. Left-sided face pain Assessment: Patient reported left-sided face pain in July, which worsened after working out. Currently, the pain has improved to a dull ache without severe episodes. The etiology of the pain is not clearly established in the transcript. Plan: - Continue monitoring symptoms - Advised to rest more and avoid overexertion Hx of cervical dysplasia Refer to [facility] [place] Cardiovascular health Assessment: Recent echocardiogram showed normal heart function with an ejection fraction of 60-65%. Left atrial enlargement and right bundle branch block were noted, likely due to chronic hypertension. Mild strain on the heart and reduced right ventricular systolic function were also observed. Plan: - Continue management of hypertension (specific treatment not mentioned) - Advised to keep room temperature cool at night to manage hot flashes Pulmonary nodules Assessment: Patient has a 30 pack-year smoking history and undergoes annual CT scans. Recent scans show stable bilateral nodules with no new pulmonary nodules identified. Plan: - Schedule another chest CT scan - Follow up in 6 months - Strongly advise smoking cessation Heath's thyroiditis Assessment: Patient has a history of Heath's thyroiditis, which is causing hypothyroidism. She reports difficulty losing weight despite reduced caloric intake, which is consistent with hypothyroidism. 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 Plan: - Continue current thyroid management (specific treatment not mentioned) - Encourage weight maintenance and periodic weight checks - Recommend plant-based, gluten-free, low-carb diet with plenty of vegetables and fruits Lymphedema Assessment: Patient is attending lymphedema clinic and reports positive outcomes. She is performing exercises at home and has obtained a prosthesis. Plan: - Continue with lymphedema clinic Polycythemia Patient has hematocrit elevated Patient likely have DANIELLE Will need sleep study Will do workup including JAK2 erythropoietin level start phlebotomy to keep hematocrit below 45 Start baby aspirin - Maintain home exercise regimenORDERS: Order # Description [id number] 3D Mammogram Diagnostic + Right ORDERS: Order # Description [id number] CBC with Auto Diff + Comprehensive Metabolic Panel - 12 + [id number] Serum Viscocity [id number] Erythropoieten Level + Testosterone; Total [id number] MD Follow Up 3 Months [id number] AYAZ - 2 Mutation Quant [id number] MD Follow Up 3 Months RETURN TO CLINIC: I reviewed the diagnosis, prognosis, and recommended treatment/procedure options with the patient (and/or their legal specialty sales representative), including the potential benefits, risks, side effects and alternative therapies. We also discussed the option of no treatment and the possibility of clinical trial participation, if applicable. All questions were addressed, and they demonstrated understanding. They provided informed consent to proceed with the proposed plan of care. BILLING AND COMPLIANCE: I reviewed external records from providers outside my specialty as summarized above. I spent a total of 50 minutes on this patient?s care on the day of their visit excluding time spent related to any billed procedures. This time includes time spent with the patient as well as time spent documenting in the medical record, reviewing patients records and tests, obtaining history, placing orders, communicating with other healthcare professionals, counseling the patient, family or caregiver, and/or care coordination for the diagnoses above. Electronically Signed by: Jose De Jesus Sanchez MD T: 4:59 PM CC: Courtney?Lee,? PCP: Courtney Howard Referring: Courtney Howard This document was completed utilizing speech recognition software. Grammatical errors, random word insertions, pronoun errors, and incomplete sentences are an occasional consequence of this system due to software limitations, ambient noise, and hardware issues. Any formal questions or concerns about the content, text or information contained within the body of this dictation should be directly addressed to the provider for clarification.
== END 2025-08-16 23:59 | disposition home or self-care (01) ==
LOC: SCTC 14:27
PROVIDERS: PCP Internal Medicine; Referring Provider Internal Medicine; Visit Provider Internal Medicine Hematology & Oncology
DX: C50.412 Malignant neoplasm of upper-outer quadrant of left female breast (principal); Z17.0 Estrogen receptor positive status [ER+]; Z17.21 Progesterone receptor positive status; Z17.32 Human epidermal growth factor receptor 2 negative status; Z90.12 Acquired absence of left breast and nipple; R51.9 Headache, unspecified; R91.8 Other nonspecific abnormal finding of lung field; Z87.891 Personal history of nicotine dependence; I10 Essential (primary) hypertension; E06.3 Autoimmune thyroiditis; I89.0 Lymphedema, not elsewhere classified
CPT/HCPCS: 99212; G0463

== ENCOUNTER → 2025-07-27 | Outpatient (CLI) | payer MEDICARE, SELFPAY ==
[2025-07-27 09:11] LABS: Misc Send Out* See Sep Rpt
[2025-07-27 09:24] LABS: Basophils # (Auto) 0.1 Thou/mm3 (0.0-0.2); Basophils % (Auto) 1 % (0-2.5); Eosinophils # (Auto) 0.3 Thou/mm3 (0.0-0.5); Eosinophils % (Auto) 5 % (0-10); Hematocrit 45.8 % (36.0-46.0); Hemoglobin 15.9 g/dL (12.0-16.0); Immature Granulocytes Auto 0.01 Thou/mm3 (0.00-0.00); Lymphocytes # (Auto) 2.9 Thou/mm3 (1.0-4.8); Lymphocytes % (Auto) 43 % (10-50); Mean Corpuscular HGB Conc 34.7 g/dl (31.0-37.0); Mean Corpuscular Hemoglobin 30.9 pg (25.0-35.0); Mean Corpuscular Volume 89 fL (80-100); Monocytes # (Auto) 0.5 Thou/mm3 (0.0-0.8); Monocytes % (Auto) 8 % (0-12); Neutrophils # (Auto) 3.0 Thou/mm3 (1.8-7.7); Neutrophils % (Auto) 44 % (37-80); Nucleated Red Blood Cell # 0.00 Thou/mm3 (0.00-0.00); Nucleated Red Blood Cell % 0 /100 WBC (0); Platelet Count 339 Thou/mm3 (140-440); RDW Standard Deviation 42.1 fL (36.4-46.3); Red Blood Count 5.14 Miln/mm3 (4.00-5.20); White Blood Count 6.8 Thou/mm3 (3.6-11.0)
[2025-07-27 09:57] LABS: Alanine Aminotransferase 26 U/L (10-49); Albumin, Serum 5.2 gm/dL (3.4-4.8); Albumin/Globulin Ratio 1.7 (1.2-2.2); Alkaline Phosphatase 115 U/L (46-116); Anion Gap 9 (7-16); Aspartate Amino Transferase 19 U/L (0-34); BUN/Creatinine Ratio 13 Ratio (12-20); Bilirubin,Total 0.3 mg/dL (0.3-1.2); Blood Urea Nitrogen 12 mg/dL (9-23); Calcium 10.2 mg/dL (8.3-10.6); Calcium (Corrected) 10.2 mg/dL (8.5-10.1); Carbon Dioxide 23.5 mMol/L (20.0-31.0); Chloride 107 mMol/L (98-107); Creatinine (Component) 0.9 mg/dL (0.6-1.3); Globulin 3.0 gm/dL (2.3-3.5); Glucose 116 mg/dL (74-106); Osmolality,Calculated 278 (275-295); Potassium 4.4 mMol/L (3.4-5.1); Sodium 139 mMol/L (136-145); Total Protein 8.2 gm/dL (5.7-8.2); eGFR > 60 See Note
[2025-07-27 14:22] LABS: Parathyroid Hormone Intact 32.1 pg/ml (18.5-88.0)
[2025-08-02 06:24] LABS: Erythropoietin (EPO)* 3.7 mIU/mL (2.6-18.5); Testosterone, Free,Dialysis 8.9 pg/mL (0.1-6.4); Testosterone, Total, Dialysis 75 ng/dL (2-45)
== END | disposition home or self-care (01) ==
LOC: COPL 08:45
PROVIDERS: PCP Internal Medicine; Referring Provider Internal Medicine Hematology & Oncology; Visit Provider Internal Medicine Hematology & Oncology
DX: C50.912 Malignant neoplasm of unspecified site of left female breast (principal)
CPT/HCPCS: 36415; 80053; 81219; 81270; 81279; 81339; 82668; 83519; 83970; 84402; 84403; 85025; 85810